=== PATIENT | female | born 1955 | race African-American/Black ===

== ENCOUNTER 2022-02-04 14:22 | Emergency (ER) | payer MEDICARE, MEDICAID ==
[~2022-02-04] VITALS: Ht 175.3 cm; Wt 75.0 kg
[~2022-02-04 14:22] MED LIST: AMLO2.5T45 PO; COR6 PO
[2022-02-04 14:59] LABS: BASOPHILS % 0.8 % (0.0-2.0); EOSINOPHILS % 1.8 % (0.0-5.0); HEMATOCRIT. 31.2 % (36.0-48.0); HEMOGLOBIN. 10.2 g/dL (12.0-16.0); LYMPHOCYTES % 20.2 % (20.0-50.0); MEAN CORPUSCULAR HEMOGLOBIN 25.7 pg (28.0-32.0); MEAN CORPUSCULAR VOLUME 78.7 fL (81.0-99.0); MEAN PLATELET VOLUME 9.7 fl (7.4-10.4); MONOCYTES % 7.7 % (2.0-8.0); NEUTROPHILS % 69.5 % (40.0-76.0); PLATELET 176 x1000/uL (130-400); RED BLOOD CELL COUNT 3.96 mill/uL (4.2-5.4); RED CELL DISTRIBUTION WIDTH 16.1 % (11.6-14.6)
[2022-02-04 15:05] LABS: CHLORIDE 105 mEq/L (98-107)
[2022-02-04] MEDS ORDERED: LIDOCAINE HCL 1% 20ML VIAL (Pyxis) INJ INFIL NR (15:10)
[2022-02-04] MEDS ORDERED: LIDOCAINE HCL/EPINEPHRINE 1%-EPI 1:100,000 20 ML VIAL INFIL ONE (15:15)
[2022-02-04] MEDS ORDERED: CEPH500T MT (18:37)
[2022-02-04] MEDS ORDERED: SULF1TAB48 MT (18:37)
[2022-02-04] MEDS ORDERED: SULFAMETHOXAZOLE/TRIMETHOPRIM 800/160MG TABLET PO ONE (18:45)
[2022-02-04] MEDS ORDERED: CEPHALEXIN 250MG CAPSULE PO ONE (18:45)
[2022-02-05 11:00] VITALS: BP 155/68
== END 2022-02-05 11:19 | disposition home or self-care (01) ==
LOC: ER 14:22
DX: K13.0 Diseases of lips (principal); E03.9 Hypothyroidism, unspecified; H54.7 Unspecified visual loss; I12.0 Hypertensive chronic kidney disease with stage 5 chronic kidney disease or end stage renal disease; E11.22 Type 2 diabetes mellitus with diabetic chronic kidney disease; N18.6 End stage renal disease; Z99.2 Dependence on renal dialysis; Z87.891 Personal history of nicotine dependence
CPT/HCPCS: 10060; 36415; 80053; 85025; 99285; J3490; Z7610

== ENCOUNTER 2022-02-05 13:02 | Emergency (ER) | payer MEDICARE, OTHER ==
[~2022-02-05] VITALS: Ht 167.6 cm; Wt 73.0 kg
[~2022-02-05 13:02] MED LIST changes: +CEPH500T MT; +SULF1TAB48 MT
[2022-02-05 14:30] VITALS: BP 140/70
== END 2022-02-05 14:58 | disposition home or self-care (01) ==
LOC: ER 13:02
DX: Z00.00 Encounter for general adult medical examination without abnormal findings (principal); E03.9 Hypothyroidism, unspecified; I12.0 Hypertensive chronic kidney disease with stage 5 chronic kidney disease or end stage renal disease; E11.22 Type 2 diabetes mellitus with diabetic chronic kidney disease; N18.6 End stage renal disease; Z99.2 Dependence on renal dialysis
CPT/HCPCS: 99283

== ENCOUNTER 2022-04-01 17:20 | Inpatient (IN) | payer MEDICARE, MEDICAID ==
[~2022-04-01] VITALS: Ht 162.6 cm; Wt 60.8 kg
[2022-04-01 19:58] LABS: BASOPHILS % 0.8 % (0.0-2.0); EOSINOPHILS % 0.8 % (0.0-5.0); HEMOGLOBIN. 9.2 g/dL (12.0-16.0); LYMPHOCYTES % 19.1 % (20.0-50.0); MEAN CORPUSCULAR HEMOGLOBIN 26.2 pg (28.0-32.0); MEAN CORPUSCULAR VOLUME 79.4 fL (81.0-99.0); MEAN PLATELET VOLUME 10.1 fl (7.4-10.4); MONOCYTES % 6.6 % (2.0-8.0); NEUTROPHILS % 72.7 % (40.0-76.0); PLATELET 192 x1000/uL (130-400); RED BLOOD CELL COUNT 3.52 mill/uL (4.2-5.4); RED CELL DISTRIBUTION WIDTH 17.8 % (11.6-14.6)
[2022-04-01 20:07] LABS: CHLORIDE 108 mEq/L (98-107)
[2022-04-01] MEDS ORDERED: INSULIN REGULAR (HUMULIN R) 300UNITS/3ML VIAL IV ONE (21:15)
[2022-04-01] MEDS ORDERED: ONDANSETRON HCL 4MG/2ML INJ IV ONE (21:15)
[2022-04-01] MEDS ORDERED: DEXTROSE 50% WATER 50ML SYRINGE IV ONE (21:15)
[2022-04-01] MEDS ORDERED: MORPHINE SULFATE 4 MG/ML CPJ (NOT FOR IM USE) IV ONE (21:15)
[2022-04-01] MEDS ORDERED: ALBUTEROL (0.083%) 2.5MG/3ML NEB HHN ONE (21:15)
[2022-04-01] MEDS ORDERED: CALCIUM CHLORIDE 1GM/10ML SYR IV ONE (21:15)
[2022-04-01] MEDS ORDERED: SODIUM POLYSTYRENE SULFONATE 15 G/60 ML BOT PO ONE (21:15)
[2022-04-02] VITALS (10 sets, daily range): BP systolic 138–170; BP diastolic 52–83
[2022-04-02 00:45] LABS: CREATINE KINASE 65 IU/L (26-192)
[2022-04-02] MEDS ORDERED: ACETAMINOPHEN 325MG TABLET PO PRN (02:45)
[2022-04-02] MEDS: PANTOPRAZOLE 40MG DR TABLET PO SCH ×3 (02:45→21:46)
[2022-04-02] MEDS ORDERED: MAGNESIUM/ALUMINUM HYDROXIDE/SIMETHICONE 30ML UDC PO PRN (02:45)
[2022-04-02] MEDS ORDERED: DEXTROSE 50% WATER 50ML SYRINGE IV PRN (02:45)
[2022-04-02] MEDS ORDERED: DOCUSATE SODIUM 100MG CAPSULE PO PRN (02:45)
[2022-04-02] MEDS ORDERED: IPRATROPIUM/ALBUTEROL 0.5-3(2.5)MG/3ML NEB HHN PRN (02:45)
[2022-04-02] MEDS ORDERED: GUAIFENESIN 200MG/10ML SUGAR FREE UDC PO PRN (02:45)
[2022-04-02 04:28] LABS: T4 FREE 0.69 ng/dL (0.76-1.46)
[2022-04-02 05:47] LABS: BASOPHILS % 0.5 % (0.0-2.0); EOSINOPHILS % 0.3 % (0.0-5.0); HEMATOCRIT. 25.9 % (36.0-48.0); HEMOGLOBIN. 8.6 g/dL (12.0-16.0); LYMPHOCYTES % 9.9 % (20.0-50.0); MEAN CORPUSCULAR HEMOGLOBIN 26.3 pg (28.0-32.0); MEAN CORPUSCULAR VOLUME 79.1 fL (81.0-99.0); MEAN PLATELET VOLUME 10.4 fl (7.4-10.4); MONOCYTES % 8.2 % (2.0-8.0); NEUTROPHILS % 81.1 % (40.0-76.0); PLATELET 189 x1000/uL (130-400); RED BLOOD CELL COUNT 3.27 mill/uL (4.2-5.4); RED CELL DISTRIBUTION WIDTH 17.7 % (11.6-14.6)
[2022-04-02 05:51] LABS: PHOSPHORUS 5.4 mg/dL (2.5-4.9)
[2022-04-02] MEDS: INSULIN LISPRO 100 UNITS/ML SUBCUT SCH ×4 (08:20→21:48)
[2022-04-02] MEDS: HEPARIN 5000 UNITS/ML VIAL SUBCUT SCH ×2 (09:00→21:47)
[2022-04-02] MEDS: BLOOD SUGAR DIAGNOSTIC STRIP TEST SCH ×4 (14:03→21:48)
[2022-04-02] MEDS: CLONIDINE 0.1MG TABLET PO PRN (21:47)
[2022-04-03] VITALS: BP 145/74
[2022-04-03 04:00] VITALS: BP 108/78
[2022-04-03] MEDS: PANTOPRAZOLE 40MG DR TABLET PO SCH ×2 (06:50→22:25)
[2022-04-03] MEDS: BLOOD SUGAR DIAGNOSTIC STRIP TEST SCH ×4 (07:09→22:27)
[2022-04-03 08:00] VITALS: BP 159/78
[2022-04-03] MEDS: ONDANSETRON HCL 4MG/2ML INJ IV PRN (11:12)
[2022-04-03] MEDS: HEPARIN 5000 UNITS/ML VIAL SUBCUT SCH ×2 (11:13→22:26)
[2022-04-03] MEDS: INSULIN LISPRO 100 UNITS/ML SUBCUT SCH ×4 (11:14→22:29)
[2022-04-03 12:00] VITALS: BP 149/70
[2022-04-03 16:00] VITALS: BP 137/75
[2022-04-03 18:14] LABS: BASOPHILS % 0.8 % (0.0-2.0); EOSINOPHILS % 2.2 % (0.0-5.0); HEMATOCRIT. 24.8 % (36.0-48.0); HEMOGLOBIN. 8.1 g/dL (12.0-16.0); LYMPHOCYTES % 14.4 % (20.0-50.0); MEAN CORPUSCULAR VOLUME 80.1 fL (81.0-99.0); MEAN PLATELET VOLUME 10.1 fl (7.4-10.4); MONOCYTES % 10.3 % (2.0-8.0); NEUTROPHILS % 72.3 % (40.0-76.0); PLATELET 158 x1000/uL (130-400); RED CELL DISTRIBUTION WIDTH 17.4 % (11.6-14.6)
[2022-04-03 19:36] LABS: PHOSPHORUS 4.8 mg/dL (2.5-4.9)
[2022-04-03 20:00] VITALS: BP 154/74
[2022-04-03 23:20] LABS: HEPATITIS B SURFACE ANTIGEN NEGATIVE
[2022-04-04] VITALS (12 sets, daily range): BP systolic 125–163; BP diastolic 60–76
[2022-04-04] MEDS: BLOOD SUGAR DIAGNOSTIC STRIP TEST SCH ×4 (06:09→22:44)
[2022-04-04] MEDS: PANTOPRAZOLE 40MG DR TABLET PO SCH (06:09)
[2022-04-04] MEDS: INSULIN LISPRO 100 UNITS/ML SUBCUT SCH ×4 (07:20→22:44)
[2022-04-04 08:08] LABS: BASOPHILS % 0.8 % (0.0-2.0); EOSINOPHILS % 1.5 % (0.0-5.0); HEMATOCRIT. 25.3 % (36.0-48.0); HEMOGLOBIN. 8.5 g/dL (12.0-16.0); LYMPHOCYTES % 21.4 % (20.0-50.0); MEAN CORPUSCULAR HEMOGLOBIN 26.6 pg (28.0-32.0); MEAN CORPUSCULAR VOLUME 79.5 fL (81.0-99.0); MEAN PLATELET VOLUME 10.2 fl (7.4-10.4); MONOCYTES % 7.8 % (2.0-8.0); NEUTROPHILS % 68.5 % (40.0-76.0); PLATELET 154 x1000/uL (130-400); RED BLOOD CELL COUNT 3.18 mill/uL (4.2-5.4); RED CELL DISTRIBUTION WIDTH 17.3 % (11.6-14.6)
[2022-04-04 08:34] LABS: PHOSPHORUS 5.3 mg/dL (2.5-4.9)
[2022-04-04] MEDS: HEPARIN 5000 UNITS/ML VIAL SUBCUT SCH ×2 (10:39→22:44)
[2022-04-04] MEDS: EPOETIN ALFA-EPBX 4,000 UNIT/ML VIAL SUBCUT SCH (22:43)
[2022-04-05] VITALS: BP 147/73
[2022-04-05 04:00] VITALS: BP 138/59
[2022-04-05] MEDS: INSULIN LISPRO 100 UNITS/ML SUBCUT SCH ×4 (07:20→20:23)
[2022-04-05] MEDS: BLOOD SUGAR DIAGNOSTIC STRIP TEST SCH ×4 (07:48→20:23)
[2022-04-05 08:00] VITALS: BP 166/86
[2022-04-05] MEDS: HEPARIN 5000 UNITS/ML VIAL SUBCUT SCH ×2 (10:21→20:24)
[2022-04-05] MEDS: FAMOTIDINE 20MG TABLET PO SCH (10:22)
[2022-04-05] MEDS: ONDANSETRON HCL 4MG/2ML INJ IV PRN (11:33)
[2022-04-05 12:00] VITALS: BP 145/75
[2022-04-05 16:00] VITALS: BP 151/70
[2022-04-05 20:00] VITALS: BP 151/76
[2022-04-06 00:18] VITALS: BP 137/60
[2022-04-06 04:00] VITALS: BP 155/69
[2022-04-06] MEDS: BLOOD SUGAR DIAGNOSTIC STRIP TEST SCH ×4 (05:55→21:11)
[2022-04-06] MEDS: INSULIN LISPRO 100 UNITS/ML SUBCUT SCH ×4 (07:20→21:16)
[2022-04-06 08:00] VITALS: BP 157/75
[2022-04-06] MEDS: HEPARIN 5000 UNITS/ML VIAL SUBCUT SCH ×2 (09:40→21:12)
[2022-04-06] MEDS: FAMOTIDINE 20MG TABLET PO SCH (09:40)
[2022-04-06 12:00] VITALS: BP 158/93
[2022-04-06 16:00] VITALS: BP_SYST 176; BP_SYST 178; BP_DIAS 108; BP_DIAS 79
[2022-04-06 17:31] LABS: HEPATITIS B SURFACE ANTIGEN NEGATIVE
[2022-04-06] MEDS: CLONIDINE 0.1MG TABLET PO PRN (17:32)
[2022-04-06 20:00] VITALS: BP 141/69
[2022-04-07] VITALS (15 sets, daily range): BP systolic 111–176; BP diastolic 61–84
[2022-04-07] MEDS: BLOOD SUGAR DIAGNOSTIC STRIP TEST SCH ×4 (06:02→21:18)
[2022-04-07] MEDS: INSULIN LISPRO 100 UNITS/ML SUBCUT SCH ×4 (07:20→21:00)
[2022-04-07 07:41] LABS: BASOPHILS % 0.8 % (0.0-2.0); EOSINOPHILS % 2.2 % (0.0-5.0); HEMOGLOBIN. 8.7 g/dL (12.0-16.0); LYMPHOCYTES % 26.4 % (20.0-50.0); MEAN CORPUSCULAR HEMOGLOBIN 26.5 pg (28.0-32.0); MEAN PLATELET VOLUME 10.3 fl (7.4-10.4); MONOCYTES % 8.9 % (2.0-8.0); NEUTROPHILS % 61.7 % (40.0-76.0); PLATELET 163 x1000/uL (130-400); RED BLOOD CELL COUNT 3.29 mill/uL (4.2-5.4); RED CELL DISTRIBUTION WIDTH 16.6 % (11.6-14.6)
[2022-04-07] MEDS: FAMOTIDINE 20MG TABLET PO SCH (09:30)
[2022-04-07] MEDS: HEPARIN 5000 UNITS/ML VIAL SUBCUT SCH ×2 (09:30→21:13)
[2022-04-07 10:17] LABS: CHLORIDE 98 mEq/L (98-107)
[2022-04-07 11:05] LABS: PHOSPHORUS 5.4 mg/dL (2.5-4.9)
[2022-04-07] MEDS: METOCLOPRAMIDE HCL 10MG/2ML VIAL IV SCH ×2 (18:01→23:25)
[2022-04-07] MEDS: METRONIDAZOLE 500 MG PREMIX 100 ML IV SCH (21:12)
[2022-04-07] MEDS: EPOETIN ALFA-EPBX 4,000 UNIT/ML VIAL SUBCUT SCH (21:13)
[2022-04-08] VITALS (8 sets, daily range): BP systolic 125–156; BP diastolic 53–92
[2022-04-08] MEDS: METOCLOPRAMIDE HCL 10MG/2ML VIAL IV SCH ×3 (05:55→19:25)
[2022-04-08] MEDS: BLOOD SUGAR DIAGNOSTIC STRIP TEST SCH ×4 (06:00→21:34)
[2022-04-08 06:32] LABS: BASOPHILS % 1.7 % (0.0-2.0); EOSINOPHILS % 3.4 % (0.0-5.0); HEMATOCRIT. 26.8 % (36.0-48.0); HEMOGLOBIN. 8.9 g/dL (12.0-16.0); LYMPHOCYTES % 32.9 % (20.0-50.0); MEAN CORPUSCULAR HEMOGLOBIN 26.5 pg (28.0-32.0); MEAN CORPUSCULAR VOLUME 79.5 fL (81.0-99.0); MONOCYTES % 9.6 % (2.0-8.0); NEUTROPHILS % 52.4 % (40.0-76.0); PLATELET 161 x1000/uL (130-400); RED BLOOD CELL COUNT 3.37 mill/uL (4.2-5.4); RED CELL DISTRIBUTION WIDTH 16.6 % (11.6-14.6)
[2022-04-08 06:46] LABS: PROTHROMBIN TIME 11.2 sec (9.6-11.0)
[2022-04-08] MEDS: INSULIN LISPRO 100 UNITS/ML SUBCUT SCH ×4 (07:20→21:00)
[2022-04-08] MEDS: METRONIDAZOLE 500 MG PREMIX 100 ML IV SCH ×2 (09:38→21:26)
[2022-04-08] MEDS: FAMOTIDINE 20MG TABLET PO SCH (09:39)
[2022-04-08] MEDS: HEPARIN 5000 UNITS/ML VIAL SUBCUT SCH ×2 (09:39→21:27)
[2022-04-09] VITALS (16 sets, daily range): BP systolic 117–146; BP diastolic 53–74
[2022-04-09] MEDS: METOCLOPRAMIDE HCL 10MG/2ML VIAL IV SCH ×4 (00:31→17:20)
[2022-04-09 06:20] LABS: FOLIC ACID (FOLATE) SERUM 5.4 ng/mL (>5.38)
[2022-04-09 06:45] LABS: EOSINOPHILS % 4.5 % (0.0-5.0); HEMATOCRIT. 28.4 % (36.0-48.0); HEMOGLOBIN. 9.2 g/dL (12.0-16.0); LYMPHOCYTES % 27.8 % (20.0-50.0); MEAN CORPUSCULAR HEMOGLOBIN 26.2 pg (28.0-32.0); MEAN CORPUSCULAR VOLUME 80.7 fL (81.0-99.0); NEUTROPHILS % 57.7 % (40.0-76.0); PLATELET 162 x1000/uL (130-400); RED BLOOD CELL COUNT 3.52 mill/uL (4.2-5.4); RED CELL DISTRIBUTION WIDTH 16.8 % (11.6-14.6)
[2022-04-09] MEDS: BLOOD SUGAR DIAGNOSTIC STRIP TEST SCH ×4 (06:52→21:51)
[2022-04-09] MEDS: FAMOTIDINE 20MG TABLET PO SCH (09:46)
[2022-04-09] MEDS: METRONIDAZOLE 500 MG PREMIX 100 ML IV SCH (09:48)
[2022-04-09] MEDS: HEPARIN 5000 UNITS/ML VIAL SUBCUT SCH ×2 (09:49→21:45)
[2022-04-09] MEDS: INSULIN LISPRO 100 UNITS/ML SUBCUT SCH ×4 (10:06→21:55)
[2022-04-09 16:03] LABS: CHLORIDE 100 mEq/L (98-107)
[2022-04-09] MEDS: EPOETIN ALFA-EPBX 4,000 UNIT/ML VIAL SUBCUT SCH (21:45)
[2022-04-09] MEDS: METRONIDAZOLE 500MG TABLET PO SCH (22:14)
[2022-04-10] VITALS (7 sets, daily range): BP systolic 108–149; BP diastolic 50–97
[2022-04-10] MEDS: METOCLOPRAMIDE HCL 10MG/2ML VIAL IV SCH ×4 (01:06→17:04)
[2022-04-10] MEDS: BLOOD SUGAR DIAGNOSTIC STRIP TEST SCH ×4 (06:18→21:42)
[2022-04-10 06:25] LABS: BASOPHILS % 0.8 % (0.0-2.0); EOSINOPHILS % 4.7 % (0.0-5.0); HEMATOCRIT. 29.2 % (36.0-48.0); HEMOGLOBIN. 9.7 g/dL (12.0-16.0); LYMPHOCYTES % 24.4 % (20.0-50.0); MEAN CORPUSCULAR HEMOGLOBIN 26.5 pg (28.0-32.0); MEAN CORPUSCULAR VOLUME 79.8 fL (81.0-99.0); MEAN PLATELET VOLUME 10.1 fl (7.4-10.4); MONOCYTES % 8.6 % (2.0-8.0); NEUTROPHILS % 61.5 % (40.0-76.0); PLATELET 163 x1000/uL (130-400); RED BLOOD CELL COUNT 3.65 mill/uL (4.2-5.4); RED CELL DISTRIBUTION WIDTH 16.5 % (11.6-14.6)
[2022-04-10] MEDS: INSULIN LISPRO 100 UNITS/ML SUBCUT SCH ×4 (07:20→21:00)
[2022-04-10] MEDS: METRONIDAZOLE 500MG TABLET PO SCH ×2 (09:28→21:51)
[2022-04-10] MEDS: HEPARIN 5000 UNITS/ML VIAL SUBCUT SCH ×2 (09:28→21:52)
[2022-04-10] MEDS: FAMOTIDINE 20MG TABLET PO SCH (09:28)
[2022-04-10 17:25] LABS: HEPATITIS B SURFACE ANTIGEN NEGATIVE
[2022-04-11] VITALS (13 sets, daily range): BP systolic 112–145; BP diastolic 52–69
[2022-04-11] MEDS: METOCLOPRAMIDE HCL 10MG/2ML VIAL IV SCH ×4 (00:52→17:18)
[2022-04-11] MEDS: BLOOD SUGAR DIAGNOSTIC STRIP TEST SCH ×4 (06:25→20:54)
[2022-04-11 06:43] LABS: BASOPHILS % 1.2 % (0.0-2.0); EOSINOPHILS % 3.3 % (0.0-5.0); HEMATOCRIT. 30.1 % (36.0-48.0); HEMOGLOBIN. 9.8 g/dL (12.0-16.0); LYMPHOCYTES % 23.1 % (20.0-50.0); MEAN CORPUSCULAR HEMOGLOBIN 26.5 pg (28.0-32.0); MEAN CORPUSCULAR VOLUME 81.3 fL (81.0-99.0); MEAN PLATELET VOLUME 9.9 fl (7.4-10.4); NEUTROPHILS % 62.4 % (40.0-76.0); PLATELET 170 x1000/uL (130-400); RED CELL DISTRIBUTION WIDTH 16.9 % (11.6-14.6)
[2022-04-11] MEDS: INSULIN LISPRO 100 UNITS/ML SUBCUT SCH ×4 (07:20→21:21)
[2022-04-11] MEDS: FAMOTIDINE 20MG TABLET PO SCH (10:12)
[2022-04-11] MEDS: METRONIDAZOLE 500MG TABLET PO SCH ×2 (10:12→21:23)
[2022-04-11] MEDS: HEPARIN 5000 UNITS/ML VIAL SUBCUT SCH ×2 (10:12→21:25)
[2022-04-11] MEDS: EPOETIN ALFA-EPBX 4,000 UNIT/ML VIAL SUBCUT SCH (21:28)
[2022-04-12 00:25] VITALS: BP 158/75
[2022-04-12] MEDS: METOCLOPRAMIDE HCL 10MG/2ML VIAL IV SCH ×5 (00:31→23:44)
[2022-04-12 04:13] VITALS: BP 135/71
[2022-04-12 06:14] LABS: BASOPHILS % 1.2 % (0.0-2.0); EOSINOPHILS % 3.8 % (0.0-5.0); HEMATOCRIT. 29.5 % (36.0-48.0); HEMOGLOBIN. 9.8 g/dL (12.0-16.0); LYMPHOCYTES % 32.7 % (20.0-50.0); MEAN CORPUSCULAR HEMOGLOBIN 26.3 pg (28.0-32.0); MEAN CORPUSCULAR VOLUME 79.6 fL (81.0-99.0); MEAN PLATELET VOLUME 9.9 fl (7.4-10.4); MONOCYTES % 9.9 % (2.0-8.0); NEUTROPHILS % 52.4 % (40.0-76.0); PLATELET 179 x1000/uL (130-400); RED BLOOD CELL COUNT 3.71 mill/uL (4.2-5.4); RED CELL DISTRIBUTION WIDTH 16.2 % (11.6-14.6)
[2022-04-12] MEDS: BLOOD SUGAR DIAGNOSTIC STRIP TEST SCH ×4 (06:20→20:56)
[2022-04-12] MEDS: INSULIN LISPRO 100 UNITS/ML SUBCUT SCH ×4 (07:20→21:07)
[2022-04-12 08:00] VITALS: BP 137/65
[2022-04-12] MEDS: FAMOTIDINE 20MG TABLET PO SCH (09:06)
[2022-04-12] MEDS: METRONIDAZOLE 500MG TABLET PO SCH (09:06)
[2022-04-12] MEDS: HEPARIN 5000 UNITS/ML VIAL SUBCUT SCH ×2 (09:06→20:56)
[2022-04-12 12:00] VITALS: BP 139/67
[2022-04-12 16:00] VITALS: BP 144/70
[2022-04-12 20:00] VITALS: BP 152/74
[2022-04-13] MEDS: METOCLOPRAMIDE HCL 10MG/2ML VIAL IV SCH ×3 (05:18→18:09)
[2022-04-13] MEDS: BLOOD SUGAR DIAGNOSTIC STRIP TEST SCH ×4 (06:50→21:25)
[2022-04-13] MEDS: INSULIN LISPRO 100 UNITS/ML SUBCUT SCH ×4 (07:20→21:30)
[2022-04-13 08:00] VITALS: BP 126/70
[2022-04-13] MEDS: HEPARIN 5000 UNITS/ML VIAL SUBCUT SCH ×2 (08:04→21:26)
[2022-04-13] MEDS: FAMOTIDINE 20MG TABLET PO SCH (08:04)
[2022-04-13 12:00] VITALS: BP 128/65
[2022-04-13 16:00] VITALS: BP 107/57
[2022-04-13 22:12] LABS: HEPATITIS B SURFACE ANTIGEN NEGATIVE
[2022-04-14] VITALS (14 sets, daily range): BP systolic 101–130; BP diastolic 52–79
[2022-04-14] MEDS: METOCLOPRAMIDE HCL 10MG/2ML VIAL IV SCH ×4 (00:36→18:00)
[2022-04-14] MEDS: BLOOD SUGAR DIAGNOSTIC STRIP TEST SCH ×4 (06:42→21:57)
[2022-04-14] MEDS: INSULIN LISPRO 100 UNITS/ML SUBCUT SCH ×4 (06:43→22:08)
[2022-04-14] MEDS: FAMOTIDINE 20MG TABLET PO SCH (08:46)
[2022-04-14] MEDS: HEPARIN 5000 UNITS/ML VIAL SUBCUT SCH ×2 (08:47→21:58)
[2022-04-14] MEDS ORDERED: POLYETHYLENE GLYCOL 3350 (17GM) 1 DOSE PACK PO NR (16:00)
[2022-04-14] MEDS: SENNOSIDES 8.6MG TABLET PO SCH (21:57)
[2022-04-14] MEDS: EPOETIN ALFA-EPBX 4,000 UNIT/ML VIAL SUBCUT SCH (21:57)
[2022-04-15] VITALS: BP 142/68
[2022-04-15] MEDS: METOCLOPRAMIDE HCL 10MG/2ML VIAL IV SCH ×4 (00:06→17:22)
[2022-04-15 04:00] VITALS: BP 137/68
[2022-04-15] MEDS: INSULIN LISPRO 100 UNITS/ML SUBCUT SCH ×4 (06:59→21:48)
[2022-04-15] MEDS: BLOOD SUGAR DIAGNOSTIC STRIP TEST SCH ×4 (06:59→20:35)
[2022-04-15 07:51] LABS: BASOPHILS % 1.3 % (0.0-2.0); EOSINOPHILS % 2.7 % (0.0-5.0); HEMATOCRIT. 28.6 % (36.0-48.0); HEMOGLOBIN. 9.4 g/dL (12.0-16.0); LYMPHOCYTES % 30.3 % (20.0-50.0); MEAN CORPUSCULAR HEMOGLOBIN 26.2 pg (28.0-32.0); MEAN CORPUSCULAR VOLUME 79.6 fL (81.0-99.0); MEAN PLATELET VOLUME 10.3 fl (7.4-10.4); MONOCYTES % 12.2 % (2.0-8.0); NEUTROPHILS % 53.5 % (40.0-76.0); PLATELET 185 x1000/uL (130-400); RED CELL DISTRIBUTION WIDTH 16.1 % (11.6-14.6)
[2022-04-15 08:00] VITALS: BP 142/85
[2022-04-15] MEDS: FAMOTIDINE 20MG TABLET PO SCH (10:09)
[2022-04-15] MEDS: DOCUSATE SODIUM 250MG CAPSULE PO SCH (10:09)
[2022-04-15] MEDS: HEPARIN 5000 UNITS/ML VIAL SUBCUT SCH ×2 (10:10→20:53)
[2022-04-15 12:00] VITALS: BP 113/51
[2022-04-15 16:00] VITALS: BP 129/96
[2022-04-15 20:07] VITALS: BP 130/56
[2022-04-15] MEDS: SENNOSIDES 8.6MG TABLET PO SCH (20:52)
[2022-04-16] VITALS (16 sets, daily range): BP systolic 88–162; BP diastolic 33–95
[2022-04-16] MEDS: METOCLOPRAMIDE HCL 10MG/2ML VIAL IV SCH ×4 (00:19→17:22)
[2022-04-16] MEDS: BLOOD SUGAR DIAGNOSTIC STRIP TEST SCH ×4 (06:25→21:49)
[2022-04-16] MEDS: INSULIN LISPRO 100 UNITS/ML SUBCUT SCH ×4 (07:20→22:17)
[2022-04-16] MEDS: HEPARIN 5000 UNITS/ML VIAL SUBCUT SCH ×2 (11:13→22:10)
[2022-04-16] MEDS: DOCUSATE SODIUM 250MG CAPSULE PO SCH (11:13)
[2022-04-16] MEDS: FAMOTIDINE 20MG TABLET PO SCH (11:13)
[2022-04-16] MEDS: ACETAMINOPHEN 325MG TABLET PO PRN (19:38)
[2022-04-16] MEDS: SENNOSIDES 8.6MG TABLET PO SCH (22:07)
[2022-04-16] MEDS: EPOETIN ALFA-EPBX 4,000 UNIT/ML VIAL SUBCUT SCH (22:12)
[2022-04-17] VITALS: BP 141/59
[2022-04-17] MEDS: METOCLOPRAMIDE HCL 10MG/2ML VIAL IV SCH ×5 (00:38→23:01)
[2022-04-17 04:00] VITALS: BP 155/77
[2022-04-17] MEDS: BLOOD SUGAR DIAGNOSTIC STRIP TEST SCH ×4 (06:13→21:00)
[2022-04-17] MEDS: INSULIN LISPRO 100 UNITS/ML SUBCUT SCH ×4 (07:20→23:00)
[2022-04-17 08:00] VITALS: BP 151/61
[2022-04-17] MEDS: FAMOTIDINE 20MG TABLET PO SCH (09:17)
[2022-04-17] MEDS: DOCUSATE SODIUM 250MG CAPSULE PO SCH (09:17)
[2022-04-17] MEDS: HEPARIN 5000 UNITS/ML VIAL SUBCUT SCH ×2 (09:17→22:15)
[2022-04-17] MEDS ORDERED: SENNOSIDES 8.6MG TABLET PO PRN (11:15)
[2022-04-17] MEDS ORDERED: LACTULOSE 20G/30ML UDC PO NR (11:30)
[2022-04-17 12:00] VITALS: BP 164/79
[2022-04-17 16:00] VITALS: BP 158/73
[2022-04-17 20:00] VITALS: BP 139/75
[2022-04-17] MEDS: SENNOSIDES 8.6MG TABLET PO SCH (22:15)
[2022-04-17 22:36] LABS: HEPATITIS B SURFACE ANTIGEN NEGATIVE
[2022-04-18] VITALS (14 sets, daily range): BP systolic 109–142; BP diastolic 50–95
[2022-04-18] MEDS: METOCLOPRAMIDE HCL 10MG/2ML VIAL IV SCH ×4 (05:17→23:36)
[2022-04-18] MEDS: BLOOD SUGAR DIAGNOSTIC STRIP TEST SCH ×4 (06:07→22:40)
[2022-04-18] MEDS: INSULIN LISPRO 100 UNITS/ML SUBCUT SCH ×4 (07:20→23:09)
[2022-04-18] MEDS: FAMOTIDINE 20MG TABLET PO SCH (09:50)
[2022-04-18] MEDS: DOCUSATE SODIUM 250MG CAPSULE PO SCH (09:50)
[2022-04-18] MEDS: HEPARIN 5000 UNITS/ML VIAL SUBCUT SCH ×2 (09:50→22:45)
[2022-04-18] MEDS: ACETAMINOPHEN 325MG TABLET PO PRN (12:35)
[2022-04-18] MEDS: SENNOSIDES 8.6MG TABLET PO SCH (22:44)
[2022-04-18] MEDS: EPOETIN ALFA-EPBX 4,000 UNIT/ML VIAL SUBCUT SCH (23:36)
[2022-04-19] VITALS: BP 117/70
[2022-04-19 04:00] VITALS: BP 131/64
[2022-04-19] MEDS: METOCLOPRAMIDE HCL 10MG/2ML VIAL IV SCH ×4 (06:25→23:30)
[2022-04-19] MEDS: INSULIN LISPRO 100 UNITS/ML SUBCUT SCH ×4 (06:25→21:00)
[2022-04-19] MEDS: BLOOD SUGAR DIAGNOSTIC STRIP TEST SCH ×4 (06:25→21:00)
[2022-04-19 07:26] LABS: BASOPHILS % 1.3 % (0.0-2.0); EOSINOPHILS % 3.1 % (0.0-5.0); HEMATOCRIT. 29.5 % (36.0-48.0); HEMOGLOBIN. 9.8 g/dL (12.0-16.0); LYMPHOCYTES % 28.4 % (20.0-50.0); MEAN CORPUSCULAR HEMOGLOBIN 26.7 pg (28.0-32.0); MEAN CORPUSCULAR VOLUME 80.4 fL (81.0-99.0); MEAN PLATELET VOLUME 9.4 fl (7.4-10.4); MONOCYTES % 10.9 % (2.0-8.0); NEUTROPHILS % 56.3 % (40.0-76.0); PLATELET 174 x1000/uL (130-400); RED BLOOD CELL COUNT 3.66 mill/uL (4.2-5.4); RED CELL DISTRIBUTION WIDTH 16.4 % (11.6-14.6)
[2022-04-19 08:00] VITALS: BP 125/56
[2022-04-19] MEDS: HEPARIN 5000 UNITS/ML VIAL SUBCUT SCH ×2 (08:39→21:59)
[2022-04-19] MEDS: FAMOTIDINE 20MG TABLET PO SCH (08:39)
[2022-04-19] MEDS: DOCUSATE SODIUM 250MG CAPSULE PO SCH (08:39)
[2022-04-19 12:00] VITALS: BP 124/56
[2022-04-19 16:00] VITALS: BP 131/97
[2022-04-19 20:00] VITALS: BP 124/59
[2022-04-19] MEDS: SENNOSIDES 8.6MG TABLET PO SCH (21:00)
[2022-04-20] VITALS: BP 118/55
[2022-04-20 04:00] VITALS: BP 140/61
[2022-04-20] MEDS: BLOOD SUGAR DIAGNOSTIC STRIP TEST SCH ×4 (06:24→21:04)
[2022-04-20] MEDS: METOCLOPRAMIDE HCL 10MG/2ML VIAL IV SCH ×3 (06:24→17:44)
[2022-04-20] MEDS: INSULIN LISPRO 100 UNITS/ML SUBCUT SCH ×4 (06:24→21:00)
[2022-04-20 08:00] VITALS: BP 145/81
[2022-04-20] MEDS: FAMOTIDINE 20MG TABLET PO SCH (08:27)
[2022-04-20] MEDS: HEPARIN 5000 UNITS/ML VIAL SUBCUT SCH ×2 (08:27→21:05)
[2022-04-20] MEDS: DOCUSATE SODIUM 250MG CAPSULE PO SCH (08:27)
[2022-04-20 12:00] VITALS: BP 137/69
[2022-04-20 16:00] VITALS: BP 136/68
[2022-04-20] MEDS ORDERED: METOCLOPRAMIDE HCL 10MG/2ML VIAL IV PRN (18:45)
[2022-04-20 20:00] VITALS: BP 143/68
[2022-04-20] MEDS: SENNOSIDES 8.6MG TABLET PO SCH (21:04)
[2022-04-20 21:52] LABS: HEPATITIS B SURFACE ANTIGEN NEGATIVE
[2022-04-21] VITALS (15 sets, daily range): BP systolic 110–170; BP diastolic 51–95
[2022-04-21] MEDS: BLOOD SUGAR DIAGNOSTIC STRIP TEST SCH ×4 (05:40→21:00)
[2022-04-21] MEDS: INSULIN LISPRO 100 UNITS/ML SUBCUT SCH ×4 (07:20→22:43)
[2022-04-21] MEDS: FAMOTIDINE 20MG TABLET PO SCH (09:40)
[2022-04-21] MEDS: DOCUSATE SODIUM 250MG CAPSULE PO SCH (09:40)
[2022-04-21] MEDS: HEPARIN 5000 UNITS/ML VIAL SUBCUT SCH ×2 (09:40→22:29)
[2022-04-21] MEDS: SENNOSIDES 8.6MG TABLET PO SCH (21:00)
[2022-04-21 21:09] LABS: BASOPHILS % 0.6 % (0.0-2.0); EOSINOPHILS % 4.4 % (0.0-5.0); HEMATOCRIT. 28.4 % (36.0-48.0); HEMOGLOBIN. 9.4 g/dL (12.0-16.0); LYMPHOCYTES % 28.4 % (20.0-50.0); MEAN CORPUSCULAR HEMOGLOBIN 26.9 pg (28.0-32.0); MEAN CORPUSCULAR VOLUME 80.9 fL (81.0-99.0); MEAN PLATELET VOLUME 9.6 fl (7.4-10.4); MONOCYTES % 10.1 % (2.0-8.0); NEUTROPHILS % 56.5 % (40.0-76.0); PLATELET 173 x1000/uL (130-400); RED BLOOD CELL COUNT 3.51 mill/uL (4.2-5.4); RED CELL DISTRIBUTION WIDTH 16.4 % (11.6-14.6)
[2022-04-22] VITALS: BP 162/69
[2022-04-22 04:00] VITALS: BP 110/71
[2022-04-22] MEDS: EPOETIN ALFA-EPBX 4,000 UNIT/ML VIAL SUBCUT SCH (05:33)
[2022-04-22] MEDS: INSULIN LISPRO 100 UNITS/ML SUBCUT SCH ×4 (06:50→21:27)
[2022-04-22] MEDS: BLOOD SUGAR DIAGNOSTIC STRIP TEST SCH ×4 (06:50→21:00)
[2022-04-22 08:00] VITALS: BP 166/85
[2022-04-22] MEDS: FAMOTIDINE 20MG TABLET PO SCH (08:41)
[2022-04-22] MEDS: HEPARIN 5000 UNITS/ML VIAL SUBCUT SCH ×2 (08:41→21:27)
[2022-04-22] MEDS: DOCUSATE SODIUM 250MG CAPSULE PO SCH (08:47)
[2022-04-22 12:00] VITALS: BP 157/71
[2022-04-22 16:00] VITALS: BP 132/55
[2022-04-22] MEDS: SENNOSIDES 8.6MG TABLET PO SCH (21:27)
[2022-04-23] VITALS (12 sets, daily range): BP systolic 97–164; BP diastolic 46–83
[2022-04-23] MEDS: BLOOD SUGAR DIAGNOSTIC STRIP TEST SCH ×4 (06:30→20:59)
[2022-04-23] MEDS: INSULIN LISPRO 100 UNITS/ML SUBCUT SCH ×3 (06:30→20:58)
[2022-04-23] MEDS: DOCUSATE SODIUM 250MG CAPSULE PO SCH (09:00)
[2022-04-23] MEDS: HEPARIN 5000 UNITS/ML VIAL SUBCUT SCH ×2 (11:46→20:42)
[2022-04-23] MEDS: FAMOTIDINE 20MG TABLET PO SCH (11:46)
[2022-04-23] MEDS: EPOETIN ALFA-EPBX 4,000 UNIT/ML VIAL SUBCUT SCH (20:42)
[2022-04-23] MEDS: SENNOSIDES 8.6MG TABLET PO SCH (20:59)
[2022-04-24] VITALS: BP 124/85
[2022-04-24 00:29] LABS: BASOPHILS % 0.9 % (0.0-2.0); EOSINOPHILS % 4.5 % (0.0-5.0); HEMATOCRIT. 30.6 % (36.0-48.0); HEMOGLOBIN. 9.9 g/dL (12.0-16.0); LYMPHOCYTES % 32.7 % (20.0-50.0); MEAN CORPUSCULAR HEMOGLOBIN 26.2 pg (28.0-32.0); MEAN CORPUSCULAR VOLUME 80.8 fL (81.0-99.0); MEAN PLATELET VOLUME 9.4 fl (7.4-10.4); MONOCYTES % 9.3 % (2.0-8.0); NEUTROPHILS % 52.6 % (40.0-76.0); PLATELET 158 x1000/uL (130-400); RED BLOOD CELL COUNT 3.78 mill/uL (4.2-5.4); RED CELL DISTRIBUTION WIDTH 16.3 % (11.6-14.6)
[2022-04-24 04:00] VITALS: BP 158/75
[2022-04-24] MEDS: BLOOD SUGAR DIAGNOSTIC STRIP TEST SCH ×4 (06:11→20:54)
[2022-04-24] MEDS: INSULIN LISPRO 100 UNITS/ML SUBCUT SCH ×4 (06:42→20:54)
[2022-04-24] MEDS: DOCUSATE SODIUM 250MG CAPSULE PO SCH (08:07)
[2022-04-24] MEDS: FAMOTIDINE 20MG TABLET PO SCH (08:08)
[2022-04-24] MEDS: HEPARIN 5000 UNITS/ML VIAL SUBCUT SCH ×2 (08:08→20:39)
[2022-04-24 08:22] VITALS: BP 139/89
[2022-04-24 12:30] VITALS: BP 150/79
[2022-04-24 16:02] VITALS: BP 162/76
[2022-04-24 20:24] VITALS: BP 133/57
[2022-04-24] MEDS: SENNOSIDES 8.6MG TABLET PO SCH (20:39)
[2022-04-25] VITALS (14 sets, daily range): BP systolic 111–162; BP diastolic 51–77
[2022-04-25] MEDS: BLOOD SUGAR DIAGNOSTIC STRIP TEST SCH ×4 (06:47→20:59)
[2022-04-25] MEDS: INSULIN LISPRO 100 UNITS/ML SUBCUT SCH ×4 (07:15→22:48)
[2022-04-25] MEDS: FAMOTIDINE 20MG TABLET PO SCH (09:00)
[2022-04-25] MEDS: DOCUSATE SODIUM 250MG CAPSULE PO SCH (09:00)
[2022-04-25] MEDS: HEPARIN 5000 UNITS/ML VIAL SUBCUT SCH ×2 (09:25→20:58)
[2022-04-25 09:42] LABS: HEPATITIS B SURFACE ANTIGEN NEGATIVE
[2022-04-25] MEDS: LEVOTHYROXINE SODIUM 25MCG TABLET PO SCH (11:45)
[2022-04-25 15:54] LABS: BASOPHILS % 0.6 % (0.0-2.0); EOSINOPHILS % 4.4 % (0.0-5.0); HEMOGLOBIN. 10.6 g/dL (12.0-16.0); LYMPHOCYTES % 32.4 % (20.0-50.0); MEAN CORPUSCULAR HEMOGLOBIN 26.4 pg (28.0-32.0); MEAN CORPUSCULAR VOLUME 81.8 fL (81.0-99.0); MEAN PLATELET VOLUME 9.6 fl (7.4-10.4); MONOCYTES % 10.4 % (2.0-8.0); NEUTROPHILS % 52.2 % (40.0-76.0); PLATELET 164 x1000/uL (130-400); RED BLOOD CELL COUNT 4.03 mill/uL (4.2-5.4); RED CELL DISTRIBUTION WIDTH 16.1 % (11.6-14.6)
[2022-04-25] MEDS: SENNOSIDES 8.6MG TABLET PO SCH (21:07)
[2022-04-25] MEDS: ACETAMINOPHEN 325MG TABLET PO PRN (22:20)
[2022-04-26] VITALS: BP 124/52
[2022-04-26 04:00] VITALS: BP 139/59
[2022-04-26] MEDS: LEVOTHYROXINE SODIUM 25MCG TABLET PO SCH (05:38)
[2022-04-26] MEDS: BLOOD SUGAR DIAGNOSTIC STRIP TEST SCH ×4 (05:38→21:14)
[2022-04-26] MEDS: INSULIN LISPRO 100 UNITS/ML SUBCUT SCH ×4 (07:15→21:00)
[2022-04-26 07:54] VITALS: BP 158/65
[2022-04-26] MEDS: HEPARIN 5000 UNITS/ML VIAL SUBCUT SCH ×2 (08:46→21:14)
[2022-04-26] MEDS: DOCUSATE SODIUM 250MG CAPSULE PO SCH (08:46)
[2022-04-26] MEDS: FAMOTIDINE 20MG TABLET PO SCH (08:46)
[2022-04-26 12:00] VITALS: BP 148/75
[2022-04-26 16:00] VITALS: BP 149/65
[2022-04-26 20:00] VITALS: BP 115/73
[2022-04-26] MEDS: SENNOSIDES 8.6MG TABLET PO SCH (21:00)
[2022-04-27] VITALS (7 sets, daily range): BP systolic 118–154; BP diastolic 68–80
[2022-04-27] MEDS: BLOOD SUGAR DIAGNOSTIC STRIP TEST SCH ×4 (06:13→21:05)
[2022-04-27] MEDS: INSULIN LISPRO 100 UNITS/ML SUBCUT SCH ×4 (06:13→21:45)
[2022-04-27] MEDS: LEVOTHYROXINE SODIUM 25MCG TABLET PO SCH (06:13)
[2022-04-27] MEDS: HEPARIN 5000 UNITS/ML VIAL SUBCUT SCH ×2 (08:52→21:03)
[2022-04-27] MEDS: DOCUSATE SODIUM 250MG CAPSULE PO SCH (08:57)
[2022-04-27] MEDS: FAMOTIDINE 20MG TABLET PO SCH (08:57)
[2022-04-27] MEDS: SENNOSIDES 8.6MG TABLET PO SCH (21:00)
[2022-04-27 22:20] LABS: HEPATITIS B SURFACE ANTIGEN NEGATIVE
[2022-04-28] VITALS (14 sets, daily range): BP systolic 108–161; BP diastolic 59–82
[2022-04-28] MEDS: BLOOD SUGAR DIAGNOSTIC STRIP TEST SCH ×4 (06:32→21:30)
[2022-04-28] MEDS: LEVOTHYROXINE SODIUM 25MCG TABLET PO SCH (06:35)
[2022-04-28] MEDS: HEPARIN 5000 UNITS/ML VIAL SUBCUT SCH ×2 (08:19→21:30)
[2022-04-28] MEDS: FAMOTIDINE 20MG TABLET PO SCH (08:19)
[2022-04-28] MEDS: DOCUSATE SODIUM 250MG CAPSULE PO SCH (08:19)
[2022-04-28] MEDS: INSULIN LISPRO 100 UNITS/ML SUBCUT SCH ×4 (08:36→21:42)
[2022-04-28] MEDS: SENNOSIDES 8.6MG TABLET PO SCH (21:00)
[2022-04-29] VITALS: BP 144/60
[2022-04-29 04:00] VITALS: BP 142/60
[2022-04-29] MEDS: BLOOD SUGAR DIAGNOSTIC STRIP TEST SCH ×4 (06:50→21:59)
[2022-04-29] MEDS: LEVOTHYROXINE SODIUM 25MCG TABLET PO SCH (06:51)
[2022-04-29] MEDS: INSULIN LISPRO 100 UNITS/ML SUBCUT SCH ×4 (07:12→22:07)
[2022-04-29 08:00] VITALS: BP 148/66
[2022-04-29] MEDS: DOCUSATE SODIUM 250MG CAPSULE PO SCH (09:25)
[2022-04-29] MEDS: FAMOTIDINE 20MG TABLET PO SCH (09:25)
[2022-04-29] MEDS: HEPARIN 5000 UNITS/ML VIAL SUBCUT SCH ×2 (09:26→21:59)
[2022-04-29 12:00] VITALS: BP 124/89
[2022-04-29 16:00] VITALS: BP 144/74
[2022-04-29 20:00] VITALS: BP 169/87
[2022-04-29] MEDS: SENNOSIDES 8.6MG TABLET PO SCH (21:59)
[2022-04-30] VITALS (10 sets, daily range): BP systolic 112–176; BP diastolic 51–82
[2022-04-30] MEDS: INSULIN LISPRO 100 UNITS/ML SUBCUT SCH ×2 (05:26→21:54)
[2022-04-30] MEDS: BLOOD SUGAR DIAGNOSTIC STRIP TEST SCH ×2 (05:26→21:54)
[2022-04-30] MEDS: LEVOTHYROXINE SODIUM 25MCG TABLET PO SCH (06:49)
[2022-04-30] MEDS: FAMOTIDINE 20MG TABLET PO SCH (09:52)
[2022-04-30] MEDS: DOCUSATE SODIUM 250MG CAPSULE PO SCH (09:52)
[2022-04-30] MEDS: HEPARIN 5000 UNITS/ML VIAL SUBCUT SCH ×2 (09:52→21:00)
[2022-04-30] MEDS: SENNOSIDES 8.6MG TABLET PO SCH (21:00)
[2022-04-30] MEDS ORDERED: GUAIFENESIN 200MG/10ML SUGAR FREE UDC PO PRN (21:30)
[2022-04-30] MEDS ORDERED: IPRATROPIUM/ALBUTEROL 0.5-3(2.5)MG/3ML NEB HHN PRN (21:30)
[2022-04-30] MEDS ORDERED: MAGNESIUM/ALUMINUM HYDROXIDE/SIMETHICONE 30ML UDC PO PRN (21:30)
[2022-04-30] MEDS ORDERED: DEXTROSE 50% WATER 50ML SYRINGE IV PRN (21:30)
[2022-04-30] MEDS ORDERED: ONDANSETRON HCL 4MG/2ML INJ IV PRN (21:30)
[2022-04-30] MEDS ORDERED: ACETAMINOPHEN 325MG TABLET PO PRN (21:45)
[2022-04-30] MEDS: CLONIDINE 0.1MG TABLET PO PRN (21:49)
[2022-05-01] VITALS: BP 134/72
[2022-05-01 04:00] VITALS: BP 130/74
[2022-05-01] MEDS: INSULIN LISPRO 100 UNITS/ML SUBCUT SCH ×4 (06:11→21:00)
[2022-05-01] MEDS: LEVOTHYROXINE SODIUM 25MCG TABLET PO SCH (06:11)
[2022-05-01] MEDS: BLOOD SUGAR DIAGNOSTIC STRIP TEST SCH ×4 (06:11→21:16)
[2022-05-01 08:00] VITALS: BP 140/70
[2022-05-01] MEDS: DOCUSATE SODIUM 250MG CAPSULE PO SCH (09:00)
[2022-05-01] MEDS: FAMOTIDINE 20MG TABLET PO SCH (10:39)
[2022-05-01] MEDS: HEPARIN 5000 UNITS/ML VIAL SUBCUT SCH ×2 (10:40→21:11)
[2022-05-01 12:00] VITALS: BP 148/83
[2022-05-01 16:00] VITALS: BP 156/70
[2022-05-01 16:06] LABS: HEPATITIS B SURFACE ANTIGEN NEGATIVE
[2022-05-01 20:00] VITALS: BP 97/67
[2022-05-01] MEDS: SENNOSIDES 8.6MG TABLET PO SCH (21:11)
[2022-05-02] VITALS (15 sets, daily range): BP systolic 129–175; BP diastolic 65–90
[2022-05-02] MEDS: BLOOD SUGAR DIAGNOSTIC STRIP TEST SCH ×4 (06:49→20:56)
[2022-05-02] MEDS: LEVOTHYROXINE SODIUM 25MCG TABLET PO SCH (07:00)
[2022-05-02] MEDS: INSULIN LISPRO 100 UNITS/ML SUBCUT SCH ×4 (07:00→20:56)
[2022-05-02] MEDS: HEPARIN 5000 UNITS/ML VIAL SUBCUT SCH ×2 (09:00→20:49)
[2022-05-02] MEDS: FAMOTIDINE 20MG TABLET PO SCH (10:16)
[2022-05-02] MEDS: DOCUSATE SODIUM 250MG CAPSULE PO SCH (10:16)
[2022-05-02] MEDS: SENNOSIDES 8.6MG TABLET PO SCH (20:50)
[2022-05-03] VITALS: BP 166/88
[2022-05-03 04:00] VITALS: BP 143/71
[2022-05-03] MEDS: INSULIN LISPRO 100 UNITS/ML SUBCUT SCH ×4 (06:48→22:36)
[2022-05-03] MEDS: BLOOD SUGAR DIAGNOSTIC STRIP TEST SCH ×4 (06:48→22:36)
[2022-05-03] MEDS: LEVOTHYROXINE SODIUM 25MCG TABLET PO SCH (06:49)
[2022-05-03 08:00] VITALS: BP 152/74
[2022-05-03] MEDS: DOCUSATE SODIUM 250MG CAPSULE PO SCH (08:55)
[2022-05-03] MEDS: FAMOTIDINE 20MG TABLET PO SCH (08:55)
[2022-05-03] MEDS: HEPARIN 5000 UNITS/ML VIAL SUBCUT SCH ×2 (08:56→22:34)
[2022-05-03 16:00] VITALS: BP 154/89
[2022-05-03 20:00] VITALS: BP 159/82
[2022-05-03] MEDS: SENNOSIDES 8.6MG TABLET PO SCH (22:33)
[2022-05-04] VITALS (15 sets, daily range): BP systolic 103–168; BP diastolic 60–95
[2022-05-04] MEDS: CLONIDINE 0.1MG TABLET PO PRN (00:52)
[2022-05-04] MEDS: BLOOD SUGAR DIAGNOSTIC STRIP TEST SCH ×4 (05:41→21:00)
[2022-05-04] MEDS: LEVOTHYROXINE SODIUM 25MCG TABLET PO SCH (05:41)
[2022-05-04] MEDS: INSULIN LISPRO 100 UNITS/ML SUBCUT SCH ×4 (05:42→21:33)
[2022-05-04 08:00] LABS: BASOPHILS % 0.5 % (0.0-2.0); EOSINOPHILS % 3.5 % (0.0-5.0); HEMATOCRIT. 32.6 % (36.0-48.0); HEMOGLOBIN. 10.8 g/dL (12.0-16.0); LYMPHOCYTES % 32.5 % (20.0-50.0); MEAN CORPUSCULAR HEMOGLOBIN 27.2 pg (28.0-32.0); MEAN CORPUSCULAR VOLUME 82.2 fL (81.0-99.0); MEAN PLATELET VOLUME 9.7 fl (7.4-10.4); MONOCYTES % 9.4 % (2.0-8.0); NEUTROPHILS % 54.1 % (40.0-76.0); PLATELET 157 x1000/uL (130-400); RED BLOOD CELL COUNT 3.96 mill/uL (4.2-5.4); RED CELL DISTRIBUTION WIDTH 15.3 % (11.6-14.6)
[2022-05-04] MEDS: DOCUSATE SODIUM 250MG CAPSULE PO SCH (09:00)
[2022-05-04] MEDS: HEPARIN 5000 UNITS/ML VIAL SUBCUT SCH ×2 (10:20→21:16)
[2022-05-04] MEDS: SENNOSIDES 8.6MG TABLET PO SCH (21:16)
[2022-05-05 00:02] VITALS: BP 135/75
[2022-05-05 04:00] VITALS: BP 143/64
[2022-05-05] MEDS: LEVOTHYROXINE SODIUM 25MCG TABLET PO SCH (05:54)
[2022-05-05] MEDS: INSULIN LISPRO 100 UNITS/ML SUBCUT SCH ×4 (05:55→21:38)
[2022-05-05] MEDS: BLOOD SUGAR DIAGNOSTIC STRIP TEST SCH ×4 (05:55→21:00)
[2022-05-05 08:06] VITALS: BP 160/70
[2022-05-05] MEDS: HEPARIN 5000 UNITS/ML VIAL SUBCUT SCH ×2 (09:34→21:28)
[2022-05-05] MEDS: DOCUSATE SODIUM 250MG CAPSULE PO SCH (09:34)
[2022-05-05 12:10] VITALS: BP 144/65
[2022-05-05 16:02] VITALS: BP 130/51
[2022-05-05 20:00] VITALS: BP 159/84
[2022-05-05] MEDS: SENNOSIDES 8.6MG TABLET PO SCH (21:00)
[2022-05-05] MEDS: CLONIDINE 0.1MG TABLET PO PRN (22:30)
[2022-05-05] MEDS: ACETAMINOPHEN 325MG TABLET PO PRN (22:30)
[2022-05-06] VITALS (15 sets, daily range): BP systolic 120–192; BP diastolic 61–97
[2022-05-06] MEDS: LEVOTHYROXINE SODIUM 25MCG TABLET PO SCH (05:59)
[2022-05-06] MEDS: INSULIN LISPRO 100 UNITS/ML SUBCUT SCH ×4 (06:09→21:00)
[2022-05-06] MEDS: BLOOD SUGAR DIAGNOSTIC STRIP TEST SCH ×4 (06:10→21:00)
[2022-05-06] MEDS: HEPARIN 5000 UNITS/ML VIAL SUBCUT SCH ×2 (08:49→21:00)
[2022-05-06] MEDS: DOCUSATE SODIUM 250MG CAPSULE PO SCH (08:49)
[2022-05-06] MEDS: SENNOSIDES 8.6MG TABLET PO SCH (21:00)
[2022-05-07] VITALS: BP 123/73
[2022-05-07] MEDS: BLOOD SUGAR DIAGNOSTIC STRIP TEST SCH ×4 (05:47→20:45)
[2022-05-07] MEDS: LEVOTHYROXINE SODIUM 25MCG TABLET PO SCH (06:18)
[2022-05-07] MEDS: INSULIN LISPRO 100 UNITS/ML SUBCUT SCH ×4 (07:15→20:52)
[2022-05-07 08:13] VITALS: BP 140/61
[2022-05-07] MEDS: DOCUSATE SODIUM 250MG CAPSULE PO SCH (08:52)
[2022-05-07] MEDS: HEPARIN 5000 UNITS/ML VIAL SUBCUT SCH ×2 (08:52→20:48)
[2022-05-07 16:00] VITALS: BP 141/75
[2022-05-07 18:43] LABS: HEPATITIS B SURFACE ANTIGEN NEGATIVE
[2022-05-07] MEDS: SENNOSIDES 8.6MG TABLET PO SCH (20:47)
[2022-05-07 23:23] VITALS: BP 144/68
[2022-05-08] VITALS (12 sets, daily range): BP systolic 112–165; BP diastolic 56–81
[2022-05-08 00:02] LABS: HEPATITIS B SURFACE ANTIGEN NEGATIVE
[2022-05-08] MEDS: BLOOD SUGAR DIAGNOSTIC STRIP TEST SCH ×4 (06:36→20:55)
[2022-05-08] MEDS: LEVOTHYROXINE SODIUM 25MCG TABLET PO SCH (06:46)
[2022-05-08] MEDS: INSULIN LISPRO 100 UNITS/ML SUBCUT SCH ×4 (06:49→20:55)
[2022-05-08] MEDS: DOCUSATE SODIUM 250MG CAPSULE PO SCH ×3 (08:46→08:49)
[2022-05-08] MEDS: HEPARIN 5000 UNITS/ML VIAL SUBCUT SCH ×2 (08:47→20:55)
[2022-05-08] MEDS: SENNOSIDES 8.6MG TABLET PO SCH (20:54)
[2022-05-09] MEDS: LEVOTHYROXINE SODIUM 25MCG TABLET PO SCH (06:35)
[2022-05-09] MEDS: INSULIN LISPRO 100 UNITS/ML SUBCUT SCH ×4 (06:35→21:34)
[2022-05-09] MEDS: BLOOD SUGAR DIAGNOSTIC STRIP TEST SCH ×4 (06:35→21:37)
[2022-05-09] MEDS: ACETAMINOPHEN 325MG TABLET PO PRN (06:38)
[2022-05-09 08:00] VITALS: BP 158/82
[2022-05-09] MEDS: HEPARIN 5000 UNITS/ML VIAL SUBCUT SCH (08:45)
[2022-05-09] MEDS: DOCUSATE SODIUM 250MG CAPSULE PO SCH (08:45)
[2022-05-09 12:00] VITALS: BP 134/77
[2022-05-09 16:00] VITALS: BP 178/87
[2022-05-09 17:20] VITALS: BP 151/75
[2022-05-09 20:00] VITALS: BP 167/73
[2022-05-09] MEDS: SENNOSIDES 8.6MG TABLET PO SCH (21:00)
[2022-05-10] VITALS: BP_SYST 148; BP_SYST 167; BP_DIAS 63; BP_DIAS 73
[2022-05-10 04:00] VITALS: BP 122/77
[2022-05-10] MEDS: BLOOD SUGAR DIAGNOSTIC STRIP TEST SCH ×4 (06:40→21:09)
[2022-05-10] MEDS: LEVOTHYROXINE SODIUM 25MCG TABLET PO SCH (06:41)
[2022-05-10] MEDS: INSULIN LISPRO 100 UNITS/ML SUBCUT SCH ×4 (06:41→21:37)
[2022-05-10 08:00] VITALS: BP 158/82
[2022-05-10] MEDS: DOCUSATE SODIUM 250MG CAPSULE PO SCH (08:45)
[2022-05-10 12:00] VITALS: BP 151/72
[2022-05-10 16:00] VITALS: BP 154/65
[2022-05-10 20:00] VITALS: BP 121/79
[2022-05-10] MEDS: SENNOSIDES 8.6MG TABLET PO SCH (22:24)
[2022-05-10] MEDS: HEPARIN 5000 UNITS/ML VIAL SUBCUT SCH (22:25)
[2022-05-11] VITALS (16 sets, daily range): BP systolic 102–170; BP diastolic 60–80
[2022-05-11] MEDS: INSULIN LISPRO 100 UNITS/ML SUBCUT SCH ×4 (06:10→20:07)
[2022-05-11] MEDS: BLOOD SUGAR DIAGNOSTIC STRIP TEST SCH ×4 (06:10→20:07)
[2022-05-11] MEDS: LEVOTHYROXINE SODIUM 25MCG TABLET PO SCH (06:12)
[2022-05-11 06:24] LABS: BASOPHILS % 0.7 % (0.0-2.0); HEMATOCRIT. 33.2 % (36.0-48.0); HEMOGLOBIN. 11.1 g/dL (12.0-16.0); LYMPHOCYTES % 30.6 % (20.0-50.0); MEAN CORPUSCULAR HEMOGLOBIN 26.6 pg (28.0-32.0); MEAN CORPUSCULAR VOLUME 80.1 fL (81.0-99.0); MEAN PLATELET VOLUME 9.7 fl (7.4-10.4); MONOCYTES % 8.4 % (2.0-8.0); NEUTROPHILS % 57.3 % (40.0-76.0); PLATELET 160 x1000/uL (130-400); RED BLOOD CELL COUNT 4.15 mill/uL (4.2-5.4)
[2022-05-11] MEDS: DOCUSATE SODIUM 250MG CAPSULE PO SCH (08:50)
[2022-05-11] MEDS: HEPARIN 5000 UNITS/ML VIAL SUBCUT SCH ×2 (08:51→21:17)
[2022-05-11] MEDS: SENNOSIDES 8.6MG TABLET PO SCH (21:16)
[2022-05-12] VITALS: BP 157/78
[2022-05-12 04:00] VITALS: BP 167/61
[2022-05-12] MEDS: BLOOD SUGAR DIAGNOSTIC STRIP TEST SCH ×4 (06:08→21:00)
[2022-05-12] MEDS: INSULIN LISPRO 100 UNITS/ML SUBCUT SCH ×5 (06:08→21:00)
[2022-05-12] MEDS: CLONIDINE 0.1MG TABLET PO PRN (06:22)
[2022-05-12] MEDS: LEVOTHYROXINE SODIUM 25MCG TABLET PO SCH (06:22)
[2022-05-12 07:32] LABS: BASOPHILS % 0.5 % (0.0-2.0); EOSINOPHILS % 3.3 % (0.0-5.0); HEMATOCRIT. 34.3 % (36.0-48.0); HEMOGLOBIN. 11.2 g/dL (12.0-16.0); LYMPHOCYTES % 31.8 % (20.0-50.0); MEAN CORPUSCULAR HEMOGLOBIN 26.5 pg (28.0-32.0); MEAN CORPUSCULAR VOLUME 81.2 fL (81.0-99.0); MONOCYTES % 10.5 % (2.0-8.0); NEUTROPHILS % 53.9 % (40.0-76.0); PLATELET 167 x1000/uL (130-400); RED BLOOD CELL COUNT 4.23 mill/uL (4.2-5.4); RED CELL DISTRIBUTION WIDTH 14.9 % (11.6-14.6)
[2022-05-12 08:00] VITALS: BP 133/67
[2022-05-12] MEDS: DOCUSATE SODIUM 250MG CAPSULE PO SCH ×2 (09:00→09:42)
[2022-05-12] MEDS: HEPARIN 5000 UNITS/ML VIAL SUBCUT SCH ×2 (09:42→21:31)
[2022-05-12 12:00] VITALS: BP 135/69
[2022-05-12 16:36] VITALS: BP 151/72
[2022-05-12 20:00] VITALS: BP 151/79
[2022-05-12] MEDS: SENNOSIDES 8.6MG TABLET PO SCH (21:31)
[2022-05-13] VITALS (14 sets, daily range): BP systolic 109–175; BP diastolic 54–95
[2022-05-13] MEDS: BLOOD SUGAR DIAGNOSTIC STRIP TEST SCH ×4 (06:27→21:00)
[2022-05-13] MEDS: LEVOTHYROXINE SODIUM 25MCG TABLET PO SCH (06:45)
[2022-05-13] MEDS: INSULIN LISPRO 100 UNITS/ML SUBCUT SCH ×4 (06:47→21:00)
[2022-05-13] MEDS: DOCUSATE SODIUM 250MG CAPSULE PO SCH (09:00)
[2022-05-13] MEDS: HEPARIN 5000 UNITS/ML VIAL SUBCUT SCH ×2 (12:13→21:05)
[2022-05-13] MEDS ORDERED: ALBUTEROL (0.083%) 2.5MG/3ML NEB HHN PRN (13:00)
[2022-05-13] MEDS ORDERED: IPRATROPIUM BROMIDE (0.02%) 0.5MG/2.5ML NEB HHN PRN (13:00)
[2022-05-13] MEDS: CLONIDINE 0.1MG TABLET PO PRN (17:55)
[2022-05-14] VITALS: BP 141/70
[2022-05-14 04:00] VITALS: BP 163/77
[2022-05-14] MEDS: INSULIN LISPRO 100 UNITS/ML SUBCUT SCH ×4 (06:39→20:43)
[2022-05-14] MEDS: BLOOD SUGAR DIAGNOSTIC STRIP TEST SCH ×4 (06:39→20:46)
[2022-05-14] MEDS: ACETAMINOPHEN 325MG TABLET PO PRN (06:39)
[2022-05-14] MEDS: LEVOTHYROXINE SODIUM 25MCG TABLET PO SCH (06:39)
[2022-05-14 08:00] VITALS: BP 113/68
[2022-05-14] MEDS: DOCUSATE SODIUM 250MG CAPSULE PO SCH (09:00)
[2022-05-14] MEDS: HEPARIN 5000 UNITS/ML VIAL SUBCUT SCH ×2 (09:55→20:38)
[2022-05-14 12:00] VITALS: BP 155/62
[2022-05-14 16:00] VITALS: BP 155/72
[2022-05-14 20:00] VITALS: BP 152/73
[2022-05-15] VITALS (13 sets, daily range): BP systolic 89–169; BP diastolic 54–87
[2022-05-15] MEDS: LEVOTHYROXINE SODIUM 25MCG TABLET PO SCH (05:50)
[2022-05-15] MEDS: BLOOD SUGAR DIAGNOSTIC STRIP TEST SCH ×4 (06:45→20:29)
[2022-05-15] MEDS: INSULIN LISPRO 100 UNITS/ML SUBCUT SCH ×4 (07:15→20:25)
[2022-05-15 08:13] LABS: BASOPHILS % 0.5 % (0.0-2.0); EOSINOPHILS % 2.3 % (0.0-5.0); HEMATOCRIT. 34.5 % (36.0-48.0); HEMOGLOBIN. 11.2 g/dL (12.0-16.0); LYMPHOCYTES % 28.5 % (20.0-50.0); MEAN CORPUSCULAR HEMOGLOBIN 26.8 pg (28.0-32.0); MEAN CORPUSCULAR VOLUME 82.1 fL (81.0-99.0); MEAN PLATELET VOLUME 10.4 fl (7.4-10.4); NEUTROPHILS % 60.7 % (40.0-76.0); PLATELET 158 x1000/uL (130-400)
[2022-05-15] MEDS: HEPARIN 5000 UNITS/ML VIAL SUBCUT SCH ×2 (09:00→20:20)
[2022-05-15] MEDS: DOCUSATE SODIUM 250MG CAPSULE PO SCH (09:00)
[2022-05-16] VITALS: BP 130/68
[2022-05-16] MEDS: BLOOD SUGAR DIAGNOSTIC STRIP TEST SCH ×4 (06:24→21:00)
[2022-05-16] MEDS: INSULIN LISPRO 100 UNITS/ML SUBCUT SCH ×4 (06:25→21:16)
[2022-05-16] MEDS: LEVOTHYROXINE SODIUM 25MCG TABLET PO SCH (06:28)
[2022-05-16 08:00] VITALS: BP 157/96
[2022-05-16] MEDS: DOCUSATE SODIUM 250MG CAPSULE PO SCH (09:35)
[2022-05-16] MEDS: HEPARIN 5000 UNITS/ML VIAL SUBCUT SCH ×2 (09:35→21:24)
[2022-05-16 12:00] VITALS: BP 151/69
[2022-05-16 16:00] VITALS: BP 155/69
[2022-05-16 20:00] VITALS: BP 162/77
[2022-05-17] VITALS: BP 108/67
[2022-05-17 04:00] VITALS: BP 126/72
[2022-05-17] MEDS: BLOOD SUGAR DIAGNOSTIC STRIP TEST SCH ×4 (06:45→22:15)
[2022-05-17] MEDS: LEVOTHYROXINE SODIUM 25MCG TABLET PO SCH (07:01)
[2022-05-17] MEDS: INSULIN LISPRO 100 UNITS/ML SUBCUT SCH ×4 (07:15→22:23)
[2022-05-17] MEDS: HEPARIN 5000 UNITS/ML VIAL SUBCUT SCH ×2 (08:29→20:45)
[2022-05-17 16:00] VITALS: BP 157/69
[2022-05-17 16:43] LABS: BASOPHILS % 0.7 % (0.0-2.0); HEMATOCRIT. 31.4 % (36.0-48.0); HEMOGLOBIN. 10.3 g/dL (12.0-16.0); LYMPHOCYTES % 27.7 % (20.0-50.0); MEAN CORPUSCULAR HEMOGLOBIN 26.5 pg (28.0-32.0); MEAN PLATELET VOLUME 10.1 fl (7.4-10.4); MONOCYTES % 8.2 % (2.0-8.0); NEUTROPHILS % 60.4 % (40.0-76.0); PLATELET 151 x1000/uL (130-400); RED BLOOD CELL COUNT 3.88 mill/uL (4.2-5.4); RED CELL DISTRIBUTION WIDTH 14.8 % (11.6-14.6)
[2022-05-17 20:00] VITALS: BP 103/47
[2022-05-17] MEDS ORDERED: SODIUM POLYSTYRENE SULFONATE 15 G/60 ML BOT PO NR (20:30)
[2022-05-18] VITALS (14 sets, daily range): BP systolic 110–169; BP diastolic 58–82
[2022-05-18] MEDS: LEVOTHYROXINE SODIUM 25MCG TABLET PO SCH (06:18)
[2022-05-18 06:43] LABS: BASOPHILS % 0.3 % (0.0-2.0); EOSINOPHILS % 2.8 % (0.0-5.0); HEMATOCRIT. 31.4 % (36.0-48.0); HEMOGLOBIN. 10.6 g/dL (12.0-16.0); MEAN CORPUSCULAR HEMOGLOBIN 26.9 pg (28.0-32.0); MEAN CORPUSCULAR VOLUME 80.1 fL (81.0-99.0); MONOCYTES % 8.1 % (2.0-8.0); NEUTROPHILS % 51.8 % (40.0-76.0); PLATELET 151 x1000/uL (130-400); RED BLOOD CELL COUNT 3.92 mill/uL (4.2-5.4); RED CELL DISTRIBUTION WIDTH 14.7 % (11.6-14.6)
[2022-05-18] MEDS: BLOOD SUGAR DIAGNOSTIC STRIP TEST SCH ×4 (06:50→21:28)
[2022-05-18] MEDS: INSULIN LISPRO 100 UNITS/ML SUBCUT SCH ×4 (07:15→21:00)
[2022-05-18] MEDS: HEPARIN 5000 UNITS/ML VIAL SUBCUT SCH ×2 (09:00→21:27)
[2022-05-19] VITALS: BP 171/80
[2022-05-19 04:00] VITALS: BP 164/79
[2022-05-19] MEDS: BLOOD SUGAR DIAGNOSTIC STRIP TEST SCH ×4 (06:57→21:00)
[2022-05-19] MEDS: LEVOTHYROXINE SODIUM 25MCG TABLET PO SCH (06:58)
[2022-05-19] MEDS: INSULIN LISPRO 100 UNITS/ML SUBCUT SCH ×4 (07:04→21:00)
[2022-05-19 08:00] VITALS: BP 159/70
[2022-05-19] MEDS: HEPARIN 5000 UNITS/ML VIAL SUBCUT SCH ×2 (09:24→21:10)
[2022-05-19 12:00] VITALS: BP 156/73
[2022-05-19 16:00] VITALS: BP 146/69
[2022-05-19 17:07] LABS: HEPATITIS B SURFACE ANTIGEN NEGATIVE
[2022-05-19 20:00] VITALS: BP 163/68
[2022-05-20] VITALS (14 sets, daily range): BP systolic 111–176; BP diastolic 60–83
[2022-05-20] MEDS: BLOOD SUGAR DIAGNOSTIC STRIP TEST SCH ×4 (06:06→21:01)
[2022-05-20] MEDS: INSULIN LISPRO 100 UNITS/ML SUBCUT SCH ×4 (06:06→21:01)
[2022-05-20] MEDS: LEVOTHYROXINE SODIUM 25MCG TABLET PO SCH (06:19)
[2022-05-20] MEDS: ACETAMINOPHEN 325MG TABLET PO PRN (06:19)
[2022-05-20] MEDS: HEPARIN 5000 UNITS/ML VIAL SUBCUT SCH ×2 (08:51→20:58)
[2022-05-20] MEDS: CLONIDINE 0.1MG TABLET PO PRN (12:03)
[2022-05-21 00:31] VITALS: BP 174/77
[2022-05-21 04:32] VITALS: BP 156/72
[2022-05-21] MEDS: LEVOTHYROXINE SODIUM 25MCG TABLET PO SCH (06:44)
[2022-05-21] MEDS: INSULIN LISPRO 100 UNITS/ML SUBCUT SCH ×4 (06:48→21:28)
[2022-05-21] MEDS: BLOOD SUGAR DIAGNOSTIC STRIP TEST SCH ×4 (06:48→21:00)
[2022-05-21 08:00] VITALS: BP 142/67
[2022-05-21] MEDS: HEPARIN 5000 UNITS/ML VIAL SUBCUT SCH ×2 (10:29→21:31)
[2022-05-21 12:00] VITALS: BP 161/72
[2022-05-21 16:00] VITALS: BP 147/68
[2022-05-21 20:00] VITALS: BP 152/74
[2022-05-22] VITALS (13 sets, daily range): BP systolic 114–175; BP diastolic 59–84
[2022-05-22] MEDS: BLOOD SUGAR DIAGNOSTIC STRIP TEST SCH ×4 (06:45→21:00)
[2022-05-22] MEDS: LEVOTHYROXINE SODIUM 25MCG TABLET PO SCH (06:55)
[2022-05-22] MEDS: INSULIN LISPRO 100 UNITS/ML SUBCUT SCH ×4 (07:15→22:06)
[2022-05-22] MEDS: HEPARIN 5000 UNITS/ML VIAL SUBCUT SCH ×2 (09:47→22:04)
[2022-05-23] VITALS: BP_SYST 119; BP_SYST 158; BP_DIAS 72; BP_DIAS 76
[2022-05-23 04:00] VITALS: BP 161/68
[2022-05-23] MEDS: LEVOTHYROXINE SODIUM 25MCG TABLET PO SCH (06:35)
[2022-05-23] MEDS: BLOOD SUGAR DIAGNOSTIC STRIP TEST SCH ×4 (06:45→21:30)
[2022-05-23] MEDS: INSULIN LISPRO 100 UNITS/ML SUBCUT SCH ×4 (07:15→21:30)
[2022-05-23 08:00] VITALS: BP 158/117
[2022-05-23] MEDS: HEPARIN 5000 UNITS/ML VIAL SUBCUT SCH ×2 (11:08→21:30)
[2022-05-23] MEDS: ACETAMINOPHEN 325MG TABLET PO PRN (11:09)
[2022-05-23 12:00] VITALS: BP 176/77
[2022-05-23 16:00] VITALS: BP 154/64
[2022-05-23] MEDS: CLONIDINE 0.1MG TABLET PO PRN (17:41)
[2022-05-23 20:00] VITALS: BP 128/55
[2022-05-23] MEDS: AMLODIPINE 2.5MG TABLET PO SCH (23:50)
[2022-05-24] VITALS: BP 153/65
[2022-05-24 04:00] VITALS: BP 144/66
[2022-05-24] MEDS: BLOOD SUGAR DIAGNOSTIC STRIP TEST SCH ×4 (06:50→20:53)
[2022-05-24] MEDS: INSULIN LISPRO 100 UNITS/ML SUBCUT SCH ×4 (07:20→21:06)
[2022-05-24 08:00] VITALS: BP 131/51
[2022-05-24] MEDS: HEPARIN 5000 UNITS/ML VIAL SUBCUT SCH ×2 (09:22→20:54)
[2022-05-24] MEDS: AMLODIPINE 2.5MG TABLET PO SCH (09:23)
[2022-05-24 12:00] VITALS: BP 184/63
[2022-05-24 16:00] VITALS: BP 112/82
[2022-05-24] MEDS: ACETAMINOPHEN 325MG TABLET PO PRN (20:54)
[2022-05-24] MEDS: CLONIDINE 0.1MG TABLET PO PRN (21:52)
[2022-05-24 22:33] VITALS: BP 161/68
[2022-05-25] VITALS (11 sets, daily range): BP systolic 108–159; BP diastolic 60–85
[2022-05-25 01:34] LABS: HEPATITIS B SURFACE ANTIGEN NEGATIVE
[2022-05-25] MEDS: BLOOD SUGAR DIAGNOSTIC STRIP TEST SCH ×4 (06:39→21:00)
[2022-05-25] MEDS: INSULIN LISPRO 100 UNITS/ML SUBCUT SCH ×4 (06:39→22:23)
[2022-05-25] MEDS: AMLODIPINE 2.5MG TABLET PO SCH (09:00)
[2022-05-25] MEDS: HEPARIN 5000 UNITS/ML VIAL SUBCUT SCH ×2 (09:00→22:19)
[2022-05-26] VITALS: BP 126/78
[2022-05-26 04:16] VITALS: BP 136/82
[2022-05-26] MEDS: BLOOD SUGAR DIAGNOSTIC STRIP TEST SCH ×4 (06:25→21:00)
[2022-05-26] MEDS: INSULIN LISPRO 100 UNITS/ML SUBCUT SCH ×4 (06:25→21:51)
[2022-05-26 07:15] LABS: BASOPHILS % 0.8 % (0.0-2.0); EOSINOPHILS % 3.4 % (0.0-5.0); HEMATOCRIT. 31.1 % (36.0-48.0); HEMOGLOBIN. 10.3 g/dL (12.0-16.0); LYMPHOCYTES % 27.8 % (20.0-50.0); MEAN CORPUSCULAR HEMOGLOBIN 26.2 pg (28.0-32.0); MEAN CORPUSCULAR VOLUME 79.4 fL (81.0-99.0); MEAN PLATELET VOLUME 10.4 fl (7.4-10.4); MONOCYTES % 8.6 % (2.0-8.0); NEUTROPHILS % 59.4 % (40.0-76.0); PLATELET 144 x1000/uL (130-400); RED BLOOD CELL COUNT 3.92 mill/uL (4.2-5.4); RED CELL DISTRIBUTION WIDTH 14.8 % (11.6-14.6)
[2022-05-26 08:00] VITALS: BP 169/78
[2022-05-26] MEDS: AMLODIPINE 2.5MG TABLET PO SCH (09:34)
[2022-05-26] MEDS: HEPARIN 5000 UNITS/ML VIAL SUBCUT SCH ×2 (09:34→21:47)
[2022-05-26 12:00] VITALS: BP 180/72
[2022-05-26 16:00] VITALS: BP 147/77
[2022-05-26 20:00] VITALS: BP 158/70
[2022-05-27] VITALS (15 sets, daily range): BP systolic 136–174; BP diastolic 67–79
[2022-05-27] MEDS: BLOOD SUGAR DIAGNOSTIC STRIP TEST SCH ×4 (06:45→21:00)
[2022-05-27] MEDS: INSULIN LISPRO 100 UNITS/ML SUBCUT SCH ×4 (07:06→21:15)
[2022-05-27] MEDS: HEPARIN 5000 UNITS/ML VIAL SUBCUT SCH ×2 (09:21→21:02)
[2022-05-27] MEDS: AMLODIPINE 2.5MG TABLET PO SCH (12:34)
[2022-05-28] VITALS: BP 164/79
[2022-05-28] MEDS: CLONIDINE 0.1MG TABLET PO PRN ×2 (00:38→11:11)
[2022-05-28] MEDS: BLOOD SUGAR DIAGNOSTIC STRIP TEST SCH ×4 (06:45→20:25)
[2022-05-28] MEDS: INSULIN LISPRO 100 UNITS/ML SUBCUT SCH ×3 (07:15→20:31)
[2022-05-28 08:00] VITALS: BP 146/63
[2022-05-28] MEDS: AMLODIPINE 2.5MG TABLET PO SCH (08:48)
[2022-05-28] MEDS: HEPARIN 5000 UNITS/ML VIAL SUBCUT SCH ×3 (08:48→20:26)
[2022-05-28 12:00] VITALS: BP 167/78
[2022-05-28] MEDS: ACETAMINOPHEN 325MG TABLET PO PRN ×2 (13:04→21:28)
[2022-05-28 16:00] VITALS: BP 129/60
[2022-05-28 18:36] LABS: HEPATITIS B SURFACE ANTIGEN NEGATIVE
[2022-05-29] VITALS (11 sets, daily range): BP systolic 128–179; BP diastolic 49–86
[2022-05-29] MEDS: AMLODIPINE 2.5MG TABLET PO SCH (09:00)
[2022-05-29] MEDS: HEPARIN 5000 UNITS/ML VIAL SUBCUT SCH ×2 (09:00→22:24)
[2022-05-29] MEDS ORDERED: DEXTROSE 50% WATER 50ML SYRINGE IV PRN (18:30)
[2022-05-29] MEDS ORDERED: GUAIFENESIN 200MG/10ML SUGAR FREE UDC PO PRN (18:30)
[2022-05-29] MEDS: BLOOD SUGAR DIAGNOSTIC STRIP TEST SCH (19:41)
[2022-05-29] MEDS: CLONIDINE 0.1MG TABLET PO PRN (22:24)
[2022-05-29] MEDS: INSULIN LISPRO 100 UNITS/ML SUBCUT SCH (22:33)
[2022-05-30] VITALS: BP 154/75
[2022-05-30] MEDS: BLOOD SUGAR DIAGNOSTIC STRIP TEST SCH ×4 (05:35→21:00)
[2022-05-30] MEDS: INSULIN LISPRO 100 UNITS/ML SUBCUT SCH ×4 (05:49→21:41)
[2022-05-30 08:00] VITALS: BP 132/65
[2022-05-30] MEDS: AMLODIPINE 2.5MG TABLET PO SCH (09:46)
[2022-05-30] MEDS: HEPARIN 5000 UNITS/ML VIAL SUBCUT SCH ×2 (09:47→21:37)
[2022-05-30] MEDS: ACETAMINOPHEN 325MG TABLET PO PRN (09:47)
[2022-05-30 12:00] VITALS: BP 108/72
[2022-05-30 16:00] VITALS: BP 149/67
[2022-05-30 20:00] VITALS: BP 154/70
[2022-05-31] VITALS: BP 116/77
[2022-05-31 04:00] VITALS: BP 159/71
[2022-05-31] MEDS: INSULIN LISPRO 100 UNITS/ML SUBCUT SCH ×4 (06:35→21:29)
[2022-05-31] MEDS: BLOOD SUGAR DIAGNOSTIC STRIP TEST SCH ×4 (06:35→21:00)
[2022-05-31 08:00] VITALS: BP 164/62
[2022-05-31] MEDS: HEPARIN 5000 UNITS/ML VIAL SUBCUT SCH ×2 (10:20→21:24)
[2022-05-31] MEDS: AMLODIPINE 2.5MG TABLET PO SCH (10:20)
[2022-05-31 12:00] VITALS: BP 174/76
[2022-05-31 16:00] VITALS: BP 160/74
[2022-05-31] MEDS: CLONIDINE 0.1MG TABLET PO PRN (17:55)
[2022-05-31 18:35] LABS: HEPATITIS B SURFACE ANTIGEN NEGATIVE
[2022-05-31 21:44] VITALS: BP 165/69
[2022-06-01] VITALS (13 sets, daily range): BP systolic 118–172; BP diastolic 63–85
[2022-06-01] MEDS: INSULIN LISPRO 100 UNITS/ML SUBCUT SCH ×4 (06:44→21:00)
[2022-06-01] MEDS: BLOOD SUGAR DIAGNOSTIC STRIP TEST SCH ×4 (06:44→21:11)
[2022-06-01] MEDS: AMLODIPINE 2.5MG TABLET PO SCH (09:05)
[2022-06-01] MEDS: HEPARIN 5000 UNITS/ML VIAL SUBCUT SCH ×2 (09:08→21:12)
[2022-06-02] VITALS: BP 107/50
[2022-06-02 04:00] VITALS: BP 156/66
[2022-06-02] MEDS: BLOOD SUGAR DIAGNOSTIC STRIP TEST SCH ×4 (06:22→21:25)
[2022-06-02] MEDS: INSULIN LISPRO 100 UNITS/ML SUBCUT SCH ×4 (06:24→21:30)
[2022-06-02 06:37] LABS: HEMATOCRIT 29.9 % (36.0-48.0); MEAN CORPUSCULAR HEMOGLOBIN 26.6 pg (28.0-32.0); MEAN CORPUSCULAR VOLUME 79.3 fL (81.0-99.0); PLATELET 129 x1000/uL (130-400); RED BLOOD CELL COUNT 3.77 mill/uL (4.2-5.4); RED CELL DISTRIBUTION WIDTH 14.8 % (11.6-14.6)
[2022-06-02 08:00] VITALS: BP 154/71
[2022-06-02] MEDS: HEPARIN 5000 UNITS/ML VIAL SUBCUT SCH ×2 (09:00→21:27)
[2022-06-02] MEDS: AMLODIPINE 2.5MG TABLET PO SCH (10:04)
[2022-06-02 12:00] VITALS: BP 117/78
[2022-06-02] MEDS: CLONIDINE 0.1MG TABLET PO PRN (15:56)
[2022-06-02 16:00] VITALS: BP 171/74
[2022-06-02 20:00] VITALS: BP 138/63
[2022-06-03] VITALS (12 sets, daily range): BP systolic 125–169; BP diastolic 51–77
[2022-06-03] MEDS: ACETAMINOPHEN 325MG TABLET PO PRN (02:58)
[2022-06-03] MEDS: INSULIN LISPRO 100 UNITS/ML SUBCUT SCH ×4 (06:31→20:54)
[2022-06-03] MEDS: BLOOD SUGAR DIAGNOSTIC STRIP TEST SCH ×4 (06:32→20:52)
[2022-06-03] MEDS: HEPARIN 5000 UNITS/ML VIAL SUBCUT SCH ×2 (09:00→20:52)
[2022-06-03] MEDS: AMLODIPINE 2.5MG TABLET PO SCH (09:58)
[2022-06-04] VITALS: BP 112/61
[2022-06-04 04:00] VITALS: BP 155/69
[2022-06-04] MEDS: BLOOD SUGAR DIAGNOSTIC STRIP TEST SCH ×4 (06:11→20:47)
[2022-06-04] MEDS: INSULIN LISPRO 100 UNITS/ML SUBCUT SCH ×4 (06:46→20:49)
[2022-06-04] MEDS: HEPARIN 5000 UNITS/ML VIAL SUBCUT SCH ×2 (09:00→20:47)
[2022-06-04] MEDS: AMLODIPINE 2.5MG TABLET PO SCH (09:01)
[2022-06-04 11:47] VITALS: BP 170/95
[2022-06-04 16:00] VITALS: BP 125/75
[2022-06-04 20:00] VITALS: BP 169/80
[2022-06-05 00:17] VITALS: BP 159/61
[2022-06-05 04:00] VITALS: BP 156/68
[2022-06-05] MEDS: BLOOD SUGAR DIAGNOSTIC STRIP TEST SCH ×4 (06:53→21:11)
[2022-06-05] MEDS: INSULIN LISPRO 100 UNITS/ML SUBCUT SCH ×4 (06:53→21:00)
[2022-06-05 07:51] VITALS: BP 153/73
[2022-06-05] MEDS: AMLODIPINE 2.5MG TABLET PO SCH (09:33)
[2022-06-05] MEDS: HEPARIN 5000 UNITS/ML VIAL SUBCUT SCH ×2 (09:33→21:12)
[2022-06-05 12:00] VITALS: BP_SYST 138; BP_SYST 163; BP_DIAS 70; BP_DIAS 86
[2022-06-05 17:01] VITALS: BP 143/64
[2022-06-05 19:10] LABS: 25-HYDROXY VITAMIN D3 6.5 ng/mL (.)
[2022-06-05 20:00] VITALS: BP 160/79
[2022-06-06] VITALS (15 sets, daily range): BP systolic 134–167; BP diastolic 61–81
[2022-06-06] MEDS: CLONIDINE 0.1MG TABLET PO PRN (00:28)
[2022-06-06] MEDS: BLOOD SUGAR DIAGNOSTIC STRIP TEST SCH ×4 (06:05→21:00)
[2022-06-06] MEDS: INSULIN LISPRO 100 UNITS/ML SUBCUT SCH ×4 (06:32→21:16)
[2022-06-06] MEDS: AMLODIPINE 2.5MG TABLET PO SCH (09:00)
[2022-06-06] MEDS: HEPARIN 5000 UNITS/ML VIAL SUBCUT SCH ×2 (10:24→21:12)
[2022-06-06] MEDS ORDERED: ERGOCALCIFEROL 50000UNITS CAPSULE PO SCH (13:00)
[2022-06-07] VITALS: BP 122/71
[2022-06-07 01:00] LABS: HEPATITIS B SURFACE ANTIGEN NEGATIVE
[2022-06-07 04:00] VITALS: BP 130/64
[2022-06-07] MEDS: INSULIN LISPRO 100 UNITS/ML SUBCUT SCH ×4 (06:44→21:56)
[2022-06-07] MEDS: BLOOD SUGAR DIAGNOSTIC STRIP TEST SCH ×4 (06:44→20:12)
[2022-06-07 08:00] VITALS: BP 105/61
[2022-06-07] MEDS: AMLODIPINE 2.5MG TABLET PO SCH (09:00)
[2022-06-07] MEDS: HEPARIN 5000 UNITS/ML VIAL SUBCUT SCH ×2 (10:13→21:52)
[2022-06-07 12:00] VITALS: BP 111/53
[2022-06-07 16:00] VITALS: BP 160/78
[2022-06-07 20:00] VITALS: BP 160/73
[2022-06-08] VITALS (7 sets, daily range): BP systolic 114–170; BP diastolic 58–85
[2022-06-08] MEDS: BLOOD SUGAR DIAGNOSTIC STRIP TEST SCH ×4 (05:01→21:00)
[2022-06-08] MEDS: INSULIN LISPRO 100 UNITS/ML SUBCUT SCH ×4 (05:31→21:00)
[2022-06-08] MEDS: AMLODIPINE 2.5MG TABLET PO SCH (08:58)
[2022-06-08] MEDS: HEPARIN 5000 UNITS/ML VIAL SUBCUT SCH ×2 (08:59→22:49)
[2022-06-08] MEDS: CLONIDINE 0.1MG TABLET PO PRN (15:40)
[2022-06-09] VITALS (15 sets, daily range): BP systolic 131–170; BP diastolic 68–85
[2022-06-09] MEDS: INSULIN LISPRO 100 UNITS/ML SUBCUT SCH ×4 (07:15→21:50)
[2022-06-09] MEDS: BLOOD SUGAR DIAGNOSTIC STRIP TEST SCH ×4 (07:31→21:00)
[2022-06-09] MEDS: ACETAMINOPHEN 325MG TABLET PO PRN (07:46)
[2022-06-09] MEDS: AMLODIPINE 2.5MG TABLET PO SCH (09:00)
[2022-06-09] MEDS: HEPARIN 5000 UNITS/ML VIAL SUBCUT SCH ×2 (09:00→21:00)
[2022-06-10] VITALS: BP 158/75
[2022-06-10 04:00] VITALS: BP 170/75
[2022-06-10] MEDS: BLOOD SUGAR DIAGNOSTIC STRIP TEST SCH ×4 (07:00→21:00)
[2022-06-10] MEDS: INSULIN LISPRO 100 UNITS/ML SUBCUT SCH ×4 (07:01→21:24)
[2022-06-10 07:51] LABS: BASOPHILS % 0.7 % (0.0-2.0); HEMATOCRIT. 26.4 % (36.0-48.0); HEMOGLOBIN. 8.7 g/dL (12.0-16.0); LYMPHOCYTES % 23.8 % (20.0-50.0); MEAN CORPUSCULAR HEMOGLOBIN 25.9 pg (28.0-32.0); MEAN CORPUSCULAR VOLUME 78.3 fL (81.0-99.0); MONOCYTES % 7.9 % (2.0-8.0); NEUTROPHILS % 63.6 % (40.0-76.0); PLATELET 128 x1000/uL (130-400); RED BLOOD CELL COUNT 3.38 mill/uL (4.2-5.4)
[2022-06-10 08:00] VITALS: BP_SYST 163; BP_SYST 167; BP_DIAS 63; BP_DIAS 79
[2022-06-10] MEDS: HEPARIN 5000 UNITS/ML VIAL SUBCUT SCH ×2 (09:00→21:00)
[2022-06-10] MEDS: AMLODIPINE 2.5MG TABLET PO SCH (09:54)
[2022-06-10 12:00] VITALS: BP 167/79
[2022-06-10 14:49] LABS: HEPATITIS B SURFACE ANTIGEN NEGATIVE
[2022-06-10 16:00] VITALS: BP 155/68
[2022-06-10 20:00] VITALS: BP 160/74
[2022-06-10] MEDS: CLONIDINE 0.1MG TABLET PO PRN (20:36)
[2022-06-10] MEDS: ACETAMINOPHEN 325MG TABLET PO PRN (20:37)
[2022-06-11] VITALS (8 sets, daily range): BP systolic 140–167; BP diastolic 60–81
[2022-06-11] MEDS: ACETAMINOPHEN 325MG TABLET PO PRN ×2 (06:36→16:36)
[2022-06-11] MEDS: BLOOD SUGAR DIAGNOSTIC STRIP TEST SCH ×4 (06:38→21:00)
[2022-06-11] MEDS: INSULIN LISPRO 100 UNITS/ML SUBCUT SCH ×5 (06:38→21:17)
[2022-06-11] MEDS: HEPARIN 5000 UNITS/ML VIAL SUBCUT SCH ×3 (09:00→21:17)
[2022-06-11] MEDS: AMLODIPINE 2.5MG TABLET PO SCH (10:02)
[2022-06-12] VITALS (7 sets, daily range): BP systolic 134–162; BP diastolic 55–87
[2022-06-12] MEDS: BLOOD SUGAR DIAGNOSTIC STRIP TEST SCH ×3 (06:45→17:37)
[2022-06-12] MEDS: HEPARIN 5000 UNITS/ML VIAL SUBCUT SCH (08:46)
[2022-06-12] MEDS: AMLODIPINE 2.5MG TABLET PO SCH (08:46)
[2022-06-12] MEDS: INSULIN LISPRO 100 UNITS/ML SUBCUT SCH (12:12)
[2022-06-12] MEDS: CLONIDINE 0.1MG TABLET PO PRN (17:47)
== END 2022-06-12 18:30 | DRG 52 ==
LOC: EDBD 17:36 → ER 17:36 → 3WST 22:35 → 7WST 04-22 02:24 → 5WST 04-22 19:23
PROVIDERS: ADMIT Internal Medicine Nephrology; ATTEND Internal Medicine Nephrology
PROC: 5A1D70Z Performance of Urinary Filtration, Intermittent, Less than 6 Hours Per Day (ICD-10-PCS; 2022-04-02)
PROC: 5A1D70Z Performance of Urinary Filtration, Intermittent, Less than 6 Hours Per Day (ICD-10-PCS; 2022-04-04)
PROC: 5A1D70Z Performance of Urinary Filtration, Intermittent, Less than 6 Hours Per Day (ICD-10-PCS; 2022-04-07)
PROC: 5A1D70Z Performance of Urinary Filtration, Intermittent, Less than 6 Hours Per Day (ICD-10-PCS; 2022-04-09)
PROC: 5A1D70Z Performance of Urinary Filtration, Intermittent, Less than 6 Hours Per Day (ICD-10-PCS; 2022-04-11)
PROC: 5A1D70Z Performance of Urinary Filtration, Intermittent, Less than 6 Hours Per Day (ICD-10-PCS; 2022-04-14)
PROC: 5A1D70Z Performance of Urinary Filtration, Intermittent, Less than 6 Hours Per Day (ICD-10-PCS; 2022-04-16)
PROC: 5A1D70Z Performance of Urinary Filtration, Intermittent, Less than 6 Hours Per Day (ICD-10-PCS; 2022-04-18)
PROC: 5A1D70Z Performance of Urinary Filtration, Intermittent, Less than 6 Hours Per Day (ICD-10-PCS; 2022-04-21)
PROC: 5A1D70Z Performance of Urinary Filtration, Intermittent, Less than 6 Hours Per Day (ICD-10-PCS; 2022-04-23)
PROC: 5A1D70Z Performance of Urinary Filtration, Intermittent, Less than 6 Hours Per Day (ICD-10-PCS; 2022-04-25)
PROC: 5A1D70Z Performance of Urinary Filtration, Intermittent, Less than 6 Hours Per Day (ICD-10-PCS; 2022-04-28)
PROC: 5A1D70Z Performance of Urinary Filtration, Intermittent, Less than 6 Hours Per Day (ICD-10-PCS; 2022-04-30)
PROC: 5A1D70Z Performance of Urinary Filtration, Intermittent, Less than 6 Hours Per Day (ICD-10-PCS; 2022-05-02)
PROC: 5A1D70Z Performance of Urinary Filtration, Intermittent, Less than 6 Hours Per Day (ICD-10-PCS; 2022-05-04)
PROC: 5A1D70Z Performance of Urinary Filtration, Intermittent, Less than 6 Hours Per Day (ICD-10-PCS; 2022-05-06)
PROC: 5A1D70Z Performance of Urinary Filtration, Intermittent, Less than 6 Hours Per Day (ICD-10-PCS; 2022-05-08)
PROC: 5A1D70Z Performance of Urinary Filtration, Intermittent, Less than 6 Hours Per Day (ICD-10-PCS; 2022-05-11)
PROC: 5A1D70Z Performance of Urinary Filtration, Intermittent, Less than 6 Hours Per Day (ICD-10-PCS; 2022-05-13)
PROC: 5A1D70Z Performance of Urinary Filtration, Intermittent, Less than 6 Hours Per Day (ICD-10-PCS; 2022-05-15)
PROC: 5A1D70Z Performance of Urinary Filtration, Intermittent, Less than 6 Hours Per Day (ICD-10-PCS; 2022-05-18)
PROC: 5A1D70Z Performance of Urinary Filtration, Intermittent, Less than 6 Hours Per Day (ICD-10-PCS; 2022-05-20)
PROC: 5A1D70Z Performance of Urinary Filtration, Intermittent, Less than 6 Hours Per Day (ICD-10-PCS; 2022-05-22)
PROC: 5A1D70Z Performance of Urinary Filtration, Intermittent, Less than 6 Hours Per Day (ICD-10-PCS; 2022-05-25)
PROC: 5A1D70Z Performance of Urinary Filtration, Intermittent, Less than 6 Hours Per Day (ICD-10-PCS; 2022-05-27)
PROC: 5A1D70Z Performance of Urinary Filtration, Intermittent, Less than 6 Hours Per Day (ICD-10-PCS; 2022-05-29)
PROC: 5A1D70Z Performance of Urinary Filtration, Intermittent, Less than 6 Hours Per Day (ICD-10-PCS; 2022-06-01)
PROC: 5A1D70Z Performance of Urinary Filtration, Intermittent, Less than 6 Hours Per Day (ICD-10-PCS; 2022-06-03)
PROC: 5A1D70Z Performance of Urinary Filtration, Intermittent, Less than 6 Hours Per Day (ICD-10-PCS; 2022-06-06)
PROC: 5A1D70Z Performance of Urinary Filtration, Intermittent, Less than 6 Hours Per Day (ICD-10-PCS; 2022-06-09)
PROC: 5A1D70Z Performance of Urinary Filtration, Intermittent, Less than 6 Hours Per Day (ICD-10-PCS; principal; 2022-06-11)
PROC: 5A1D70Z Performance of Urinary Filtration, Intermittent, Less than 6 Hours Per Day (ICD-10-PCS; 2022-06-11)
DX: G93.41 Metabolic encephalopathy (principal); J96.90 Respiratory failure, unspecified, unspecified whether with hypoxia or hypercapnia; I21.A1 Myocardial infarction type 2; I50.33 Acute on chronic diastolic (congestive) heart failure; E44.1 Mild protein-calorie malnutrition; D63.8 Anemia in other chronic diseases classified elsewhere; E11.319 Type 2 diabetes mellitus with unspecified diabetic retinopathy without macular edema; I27.20 Pulmonary hypertension, unspecified; E87.5 Hyperkalemia; N18.6 End stage renal disease; I13.2 Hypertensive heart and chronic kidney disease with heart failure and with stage 5 chronic kidney disease, or end stage renal disease; N25.81 Secondary hyperparathyroidism of renal origin; I16.0 Hypertensive urgency; E03.9 Hypothyroidism, unspecified; E11.22 Type 2 diabetes mellitus with diabetic chronic kidney disease; R26.9 Unspecified abnormalities of gait and mobility; K57.30 Diverticulosis of large intestine without perforation or abscess without bleeding; Z60.2 Problems related to living alone; H54.8 Legal blindness, as defined in USA; E11.43 Type 2 diabetes mellitus with diabetic autonomic (poly)neuropathy; Z20.822 Contact with and (suspected) exposure to COVID-19; K31.84 Gastroparesis; W18.39XA Other fall on same level, initial encounter; S70.02XA Contusion of left hip, initial encounter; E55.9 Vitamin D deficiency, unspecified; D50.9 Iron deficiency anemia, unspecified; Z99.2 Dependence on renal dialysis; Z99.3 Dependence on wheelchair; Z59.00 Homelessness unspecified; Z82.49 Family history of ischemic heart disease and other diseases of the circulatory system; Z83.3 Family history of diabetes mellitus; Y93.89 Activity, other specified; Y92.098 Other place in other non-institutional residence as the place of occurrence of the external cause; Y99.8 Other external cause status; Z79.84 Long term (current) use of oral hypoglycemic drugs; Z68.23 Body mass index [BMI] 23.0-23.9, adult
CPT/HCPCS: 36415; 71045; 72192; 73502; 78265; 80048; 80053; 80061; 80076; 82306; 82550; 82607; 82728; 82746; 82962; 83036; 83540; 83550; 83735; 83880; 84100; 84132; 84439; 84443; 84484; 85025; 85027; 85044; 86705; 86709; 86803; 87340; 87426; 90935; 92523; 92610; 93005; 93306; 97116; 97162; 97164; 97165; 97166; 97530; 97535; 99291; A6261; C1893; C9803; J0885; J1644; J1815; J2405; J2765; J3490